=== PATIENT | male | born 1975 | race Caucasian/White ===

== ENCOUNTER 2021-11-30 12:10 | Emergency (ER) | payer OTHER, SELFPAY ==
[2021-11-30 12:16] VITALS: BP 141/54; PULSE 60; RESP 16; TEMP 36.2; O2SAT 98
--- NOTE | 2021-11-30 12:41 | ED.GENADULT ---
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 Patient was cleaning up drug paraphernalia at a house when he felt like he was pricked by a small needle. He is working with a bag that was filled with insulin needles and other hypodermic needles. The network control technician of the needles is a known IV drug user with hepatitis C. The patient would like HIV prophylaxis. no other complaints at this time. Related Data Allergies Allergy/AdvReac Type Severity Reaction Status Date / Time No Known Allergies Allergy Verified 11/30/21 12:19 Review of Systems Review of Systems: CONSTITUTIONAL: Denies night sweats. EYES: No eye pain ENT: Denies rhinorrhea CARDIOVASCULAR: Denies palpitations RESPIRATORY: Denies hemoptysis GASTROINTESTINAL: Denies hematemesis GENITOURINARY: Denies hematuria. SKIN: Denies rash MUSCULOSKELETAL: Denies myalgia. NEUROLOGIC: Denies weakness. PSYCHIATRIC: Denies delusions Exam Narrative: APPEARANCE: No apparent distress. Head atraumatic. EYES: PERRLA/EOMI, NOSE: Normal no drainage NECK: Supple, Trachea midline RESPIRATORY: CTAB, No increased work of breathing. CARDIOVASCULAR: S1S2 appreciated ABDOMINAL: Soft, nontender, nondistended, MUSCULOSKELETAl: No obvious deformities NEURO: Alert. Moving 4/4 extremities SKIN:: Warm, dry. Normal color PSYCHIATRIC: Normal affect Course Vital Signs Vital signs: Vital Signs Temperature 97.1 F L 11/30/21 12:16 Pulse Rate 60 11/30/21 12:16 Respiratory Rate 16 11/30/21 12:16 Blood Pressure 141/54 H 11/30/21 12:16 Pulse Oximetry 98 11/30/21 12:16 Temperature 97.1 F L 11/30/21 12:16 Pulse Rate 60 11/30/21 12:16 Respiratory Rate 16 11/30/21 12:16 Blood Pressure 141/54 H 11/30/21 12:16 Pulse Oximetry 98 11/30/21 12:16 Medical Decision Making [facility] Narrative Medical decision making narrative: This is a 45-year-old male presenting after a needlestick. He is high risk as it was a hypodermic needle and the Cozaar had hepatitis C. HIV status is unknown. HIV post exposure prophylaxis will be initiated. Appropriate lab work has been ordered. Baseline lab work was within normal limits. Patient will be discharged w/ HIV prophylaxis. He has been given the schedule of when he will need repeat testing for HIV and hepatitis C. He has been instructed to follow-up with his primary care physician Vital Signs Vital Signs: Vital Signs Temperature 97.1 F L 11/30/21 12:16 Pulse Rate 60 11/30/21 12:16 Respiratory Rate 16 11/30/21 12:16 Blood Pressure 141/54 H 11/30/21 12:16 Pulse Oximetry 98 11/30/21 12:16 Temperature 97.1 F L 11/30/21 12:16 Pulse Rate 60 11/30/21 12:16 Respiratory Rate 16 11/30/21 12:16 Blood Pressure 141/54 H 11/30/21 12:16 Pulse Oximetry 98 11/30/21 12:16 Lab Data Result diagrams: 11/30/21 13:16 11/30/21 13:16 Labs: Lab Results 11/30/21 11/30/21 11/30/21 Range/Units 13:16 13:16 13:16 WBC 8.1 (4.5-10.0) K/mm3 RBC 5.48 (4.6-6.20) M/mm3 Hgb 16.0 (14.0-18.0) g/dL Hct 45.8 (42.0-52.0) % MCV 83.6 (80-100) fl MCH 29.2 (26-34) pg MCHC 34.9 (32-36) g/dl RDW 12.3 (11.5-14.5) % Plt Count 224 (150-375) k/mm3 MPV 8.7 (7.4-10.4) fl Immature Gran % (Auto) 0.4 (0-0.5) % Neut % (Auto) 66.7 (45.5-73.1) % Lymph % (Auto) 23.6 (18.3-44.2) % [place] % (Auto) 7.3 (2.6-8.5) % Eos % (Auto) 1.5 (0-4.4) % Baso % (Auto) 0.5 (0.2-1.2) % Lymph # (Auto) 1.91 (0.9-3.2) K/mm3 [place] # (Auto) 0.6 (0.1-0.6) K/mm3 Eos # (Auto) 0.1 (0-0.3) K/mm3 Baso # (Auto) 0.0 (0.0-0.1) K/mm3 Abs Immat Gran (auto) 0.03 (0.00-0.031) K/mm3 Absolute Neuts
--- NOTE | 2021-11-30 12:51 | ECG_ITS ---
Measurements Intervals [place] Rate: 56 P: 63 PA: 153 QRS: 51 QRSD: 91 T: 52 QT: 383 QTc: 371 Interpretive Statements SINUS BRADYCARDIA POSSIBLE RIGHT VENTRICULAR CONDUCTION DELAY [RSR (QR) IN V1/V2] BORDERLINE ECG NO PREVIOUS ECG AVAILABLE FOR COMPARISON Electronically Signed On 11-30-2021 16:25:27 CDT by Dioni Loomis M.D.
[2021-11-30] MEDS: TETANUS,DIPHTHERIA,AC PERTUSSIS ADULT (0.5 ML) BOOSTRIX IM (13:02)
[2021-11-30 13:32] LABS: Basophils Percent Auto 0.5 % (0.2-1.2); Eosinophils Absolute Auto 0.1 K/mm3 (0-0.3); Eosinophils Percent Auto 1.5 % (0-4.4); Hematocrit 45.8 % (42.0-52.0); Immature Granulocyte Absolute 0.03 K/mm3 (0.00-0.031); Immature Granulocyte Percent A 0.4 % (0-0.5); Lymphocytes Absolute Auto 1.91 K/mm3 (0.9-3.2); Lymphocytes Percent Auto 23.6 % (18.3-44.2); Mean Corpuscular HGB Conc 34.9 g/dl (32-36); Mean Corpuscular Hemoglobin 29.2 pg (26-34); Mean Corpuscular Volume 83.6 fl (80-100); Mean Platelet Volume 8.7 fl (7.4-10.4); Monocytes Absolute Auto 0.6 K/mm3 (0.1-0.6); Monocytes Percent Auto 7.3 % (2.6-8.5); Neutrophils Absolute Auto 5.4 K/mm3 (1.3-6.7); Neutrophils Percent Auto 66.7 % (45.5-73.1); Platelet Count Result 224 k/mm3 (150-375); Red Blood Count 5.48 M/mm3 (4.6-6.20); Red Cell Distribution Width 12.3 % (11.5-14.5); White Blood Count 8.1 K/mm3 (4.5-10.0)
[2021-11-30 13:36] LABS: Add Urine Microscopic? NO; Appearance Urine Clear (Clear); Bilirubin Urine Negative (Negative); Blood Urine Negative (Negative); Color Urine Yellow (Yellow); Glucose Urine UA Negative (Negative); Ketones Urine Negative (Negative); Leukocyte Esterase Ur Negative LEU/UL (Negative); Nitrate Urine Negative (Negative); Protein Urine Negative (Negative); Specific Grav Ur 1.018 (1.001-1.035); Urobilinogen Urine Negative mg/dL (<2.0)
[2021-11-30 13:46] LABS: Alanine Aminotransferase 50 U/L (6-50); Albumin Level 4.9 g/dL (3.5-5.1); Alkaline Phosphatase 56 U/L (38-126); Anion Gap 16 mmol/L (8-16); Aspartate Amino Transferase 37 U/L (17-59); Bilirubin,Total 0.4 mg/dL (0.2-1.3); Blood Urea Nitrogen 23 mg/dL (9-20); Calcium 9.2 mg/dL (8.4-10.2); Carbon Dioxide 28 mmol/L (22-30); Chloride 97 mmol/L (98-107); Estimated CRCL calculation 85 ml/min; Estimated Glomerular Filt Rate > 60; Glucose 100 mg/dL (65-110); Potassium 3.7 mmol/L (3.4-5.0); Sodium 141 mmol/L (137-145)
[2021-11-30 14:28] LABS: HIV 1/2 Ab P24 Ag Result Negative (Negative)
[2021-11-30 16:32] LABS: Hepatitis B Surface Antigen Negative (Negative)
[2021-11-30 16:38] LABS: HAV RESULT Negative (Negative); Hepatitis B Core IgM Result Negative (Negative)
[2021-11-30 16:49] LABS: Hepatitis C Virus Antibody Negative (Negative)
== END 2021-11-30 14:45 | disposition home or self-care (01) ==
PROVIDERS: Emergency Provider Emergency Medicine
DX: T14.8XXA Other injury of unspecified body region, initial encounter (principal); W46.1XXA Contact with contaminated hypodermic needle, initial encounter; Z23 Encounter for immunization
CPT/HCPCS: 36415; 80053; 80074; 81003; 85025; 86703; 90471; 90715; 93005; 99283; G0432

== ENCOUNTER 2024-08-30 00:15 | Day surgery (SDC) | payer OTHER, SELFPAY ==
[2024-08-15 15:25] VITALS: BMI 29.2
--- OUTSIDE RECORDS SUMMARY | 2024-08-30 00:24 | XMS_ITS | Patient Health Record ---
Author Organization [facility] [employer] Address [address] [facility] [address] [place] [address] Care Team Providers Care Cotton Agent Name Role Phone Juan Pablo ALVARADO, [facility] Primary Care Provider Alysa Wilson Unavailable [phone] Allergies No Known Allergies Reason For Referral No Information Medications Medication SIG (Take, Route, Frequency, Duration) Notes Start Date End Date Status Ergocalciferol 1.25 MG (30669 UT) Oral 06/28/2023 Not-Taking Vraylar 1.5 MG Take 1 capsule by mouth once daily; Duration: 90 Active Vraylar 1.5 MG 1 capsule Orally Once a day; Duration: 90 days Active Venlafaxine HCl ER 75 MG 1 capsule in the morning Oral Once a day; Duration: 90 days d/c 150 mg dose Active lamoTRIgine 25 MG 1 tablet once a day for 15 days, 2 tablets once a day for 15 days Orally once a day; Duration: 30 days 08/07/2024 Active Immunizations Vaccine Route Administration Date Status Comme nts Tdap Unknown 11/30/2021 Administered Social History Tobacco Use: Social History Observation Description Date Details (start date - stop date) Never Smoker NA - NA Sex Assigned At : Social History Observation Description Sex Assigned At Male Tobacco Control (Standard) Question Answer Notes Tobacco use: Nonsmoker AUDIT-C (Standard) Question Answer Notes Did you have a drink contain ing alcohol in the past year? Yes How many drinks did you have on a typical day when you were drinking in the past year? 1 or 2 drinks (0 point) How often did you have a dri nk containing alcohol in the past year? Monthly or less (1 point) Problems Problem Type SNOMED Code ICD Code Onset Dates Problem Status W/U Status Risk Notes Problem Mild recurrent major depression (22441262) Major depressive disorder, recurrent, mild (F33.0) 06/28/19 24 Active confirmed Problem Generalized anxiety disorder (01118520) Generalized anxiety disorder (F41.1) 06/28/19 Active confirmed Problem Sleep apnea (49510845) Sleep apnea, unspecified (G47.30) 06/28/19 24 Active confirmed Problem Screening for cardiovascular system disease (066180374) Encounter for screening for cardiovascular disorders (Z13.6) Active confirmed Vital Signs Heart Rate 66 /min 05/08/2024 Height-cm 167.64 cm 05/08/2024 Blood pressure diastolic 71 mm Hg 05/08/2024 Weight-kg 83.92 kg 05/08/2024 Height 66.00 in 05/08/2024 Blood pressure systolic 129 mm Hg 05/08/2024 Weight 185.0 lbs 05/08/2024 BMI 29.86 kg/m2 05/08/2024 Encounters Encounter Location Date Provider Diagnosis [facility] [employer] [address] [address] 11/29/2023 Alysa Theranni Major depressive disorder, recurrent, mild F33.0 ; Generalized anxiety disorder F41.1 and Sleep apnea, unspecified G47.30 [facility] [employer] [address] [address] 02/09/2024 Alysa Thery Major depressive disorder, recurrent, mild F33.0 ; Generalized anxiety disorder F41.1 and Sleep apnea, unspecified G47.30 [facility] [employer] [address] [address] 03/22/2024 Alysa Thery Major depressive disorder, recurrent, mild F33.0 ; Generalized anxiety disorder F41.1 and Sleep apnea, unspecified G47.30 [facility] [employer] [address] [address] 05/08/2024 Alysa Thery Major depressive disorder, recurrent, mild F33.0 ; Generalized anxiety disorder F41.1 ; Sleep apnea, unspecified G47.30 and Encounter for screening for cardiovascular disorders Z13.6 [facility] [employer] [address] [address] 08/07/2024 Alysa Thery Major depressive disorder, recurrent, mild F33.0 ; Generalized anxiety disorder F41.1 ; Sleep apnea, unspecified G47.30 ; Encounter for screening for cardiovascular disorders Z13.6 and Encounter for screening for depression Z13.31 [facility], [facility] [address] [place] [address] 09/06/2023 Alysa Rose [facility], [facility] [address] [place] [address] 02/21/2024 Alysa Rose [facility], [facility] [address] [place] [address] 08/31/2023 Alysa Rose [facility], [facility] [address] [place] [address] 09/06/2023 Alysa Rose Generalized anxiety disorder F41.1 [facility], [facility] [address] [place] [address] 09/06/2023 Alysa Rose [facility], [facility] [address] [place] [address] 09/09/2023 Alysa Rose [facility], [facility] [address] [place] [address] 09/12/2023 Alysa Rose [facility], [facility] [address] [place] [address] 01/20/2024 Alysa Rose [facility], [facility] [address] [place] [address] 02/09/2024 Alysa Rose [facility], [facility] [address] [place] [address] 03/20/2024 Alysa Rose [facility], [facility] [address] [place] [address] 03/21/2024 Alysa Rose [facility], [facility] [address] [place] [address] 03/21/2024 Alysa Theranni [facility], [facility] [address] [place] [address] 05/21/2024 Alysa Theranni [facility], [facility] [address] [place] [address] 05/28/2024 Alysa Rose [facility] [address] [address] 05/28/2024 Alysa Rose Assessments Encounter Date Diagnosis (ICD Code) Assessment Notes Treatment Notes Treatment Clinical Notes Section Notes 09/06/2023 Generalized anxiety disorder (ICD-10 - F41.1) 11/29/2023 Major depressive disorder, recurrent, mild (ICD-10 - F33.0) Preventing Depression From Coming Back: Care Instructions material was published, Learning About Depression Screening material was published, Learning About Depression material was published, Seasonal Affective Disorder: Care Instructions material was published, Depression Treatment: Care Instructions material was published 1. Mild recurrent major depression -educated and discuss Increase Effexor ER 150 mg daily in am - for depresison and anxiety- donny reported he also gets seasonal affective disorder MONITOR B/P educated patient not able to do disability forms for up to 1 year related patient is new to practice educated on all medications, benefits, side effects and risk, and educated on depression, anxiety, and ADHD, mood d/o and educated on compliance of medications, metabolic and movement d/o education appointment is, continue therapy discussion with patient about course of treatment and patient instructions. education on serotonin syndrome SSRI/SNRI side effects discussed including but not limited to, gastric upset, nausea, vomiting, diarrhea and/or constipation, weight changes, sexual side effects including loss of libido, increased suicidal thoughts/behaviors in children and young adults, and serotonin syndrome. 2. Generalized anxiety disorder - Increase Effexor ER 150 mg daily in am - MONITOR B/P educated on rx will titate as needed discuss light box therapy and proper use for depression and seasonal affective d/o Reported tinnitus cause more anxiety with ringing and I am focus on it and not on tasks and conversation ect- educated to see ENT for tinnitus Discuss therapy CAMRYN and patient does not feel a need at this time Medication Management and Follow-Up - Plan: - Schedule follow-up appointments every 1-3 months and PRN to monitor the patient's response to the medication regimen. - Reinforce the importance of avoiding recreational drug use due to potential neurotoxicity and interactions with prescribed medications. 3. Sleep apnea -on CPAP 02/09/2024 Major depressive disorder, recurrent, mild (ICD-10 - F33.0) Preventing Depression From Coming Back: Care Instructions material was published, Learning About Depression Screening material was published, Learning About Depression material was published, Seasonal Affective Disorder: Care Instructions material was published, Depression Treatment: Care Instructions material was published 1. Mild recurrent major depression -educated and discuss Effexor ER 150 mg daily in am - for depresison and anxiety- saryn reported he also gets seasonal affective disorder MONITOR B/P educated patient not able to do disability forms for up to 1 year related patient is new to practice educated on all medications, benefits, side effects and risk, and educated on depression, anxiety, and ADHD, mood d/o and educated on compliance of medications, metabolic and movement d/o education appointment is, continue therapy discussion with patient about course of treatment and patient instructions. education on serotonin syndrome SSRI/SNRI side effects discussed including but not limited to, gastric upset, nausea, vomiting, diarrhea and/or constipation, weight changes, sexual side effects including loss of libido, increased suicidal thoughts/behaviors in children and young adults, and serotonin syndrome. [place] letter stating marleen has medical dxn of tinnitus from [place] and had test completed per patient. Patient reported tinnitus triggers anxiety and stress in situations, conversations, and effect social interaction, and at work with others 2. Generalized anxiety disorder - Effexor ER 150 mg daily in am - MONITOR B/P educated on rx will titate as needed discuss light box therapy and proper use for depression and seasonal affective d/o Reported tinnitus cause more anxiety with ringing and I am focus on it and not on tasks and conversation ect- educated to see ENT for tinnitus Discuss therapy CAMRYN and patient does not feel a need at this time Medication Management and Follow-Up - Plan: - Schedule follow-up appointments every 1-3 months and PRN to monitor the patient's response to the medication regimen. - Reinforce the importance of avoiding recreational drug use due to potential neurotoxicity and interactions with prescribed medications. 3. Sleep apnea -on CPAP 03/22/2024 Major depressive disorder, recurrent, mild (ICD-10 - F33.0) Preventing Depression From Coming Back: Care Instructions material was published, Learning About Depression Screening material was published, Learning About Depression material was published, Seasonal Affective Disorder: Care Instructions material was published, Depression Treatment: Care Instructions material was published 1. Mild recurrent major depression -educated and discuss decrease Effexor ER 75 mg daily in am - r/o sexual side effects patient reported had labs done last month and [facility] - PCP depresison and anxiety- patient reported he also gets seasonal affective disorder- discus light box therapy and proper use MONITOR B/P educated patient not able to do disability forms for up to 1 year related patient is new to practice educated on all medications, benefits, side effects and risk, and educated on depression, anxiety, and ADHD, mood d/o and educated on compliance of medications, metabolic and movement d/o education appointment is, continue therapy discussion with patient about course of treatment and patient instructions. education on serotonin syndrome SSRI/SNRI side effects discussed including but not limited to, gastric upset, nausea, vomiting, diarrhea and/or constipation, weight changes, sexual side effects including loss of libido, increased suicidal thoughts/behaviors in children and young adults, and serotonin syndrome. [place] letter stating marleen has medical dxn of tinnitus from [place] and had test completed per patient. Patient reported tinnitus triggers anxiety and stress in situations, conversations, and effect social interaction, and at work with others 2. Generalized anxiety disorder - decrease Effexor ER 75 mg daily in am - r/o sexual side effects MONITOR B/P educated on rx will titate as needed discuss light box therapy and proper use for depression and seasonal affective d/o Reported tinnitus cause more anxiety with ringing and I am focus on it and not on tasks and conversation ect- educated to see ENT for tinnitus- plan to have hearing test Discuss therapy CAMRYN and patient does not feel a need at this time Medication Management and Follow-Up - Plan: - Schedule follow-up appointments every 1-3 months and PRN to monitor the patient's response to the medication regimen. - Reinforce the importance of avoiding recreational drug use due to potential neurotoxicity and interactions with prescribed medications. 3. Sleep apnea -on CPAP 05/08/2024 Major depressive disorder, recurrent, mild (ICD-10 - F33.0) Preventing Depression From Coming Back: Care Instructions material was published, Learning About Depression Screening material was published, Learning About Depression material was published, Seasonal Affective Disorder: Care Instructions material was published, Depression Treatment: Care Instructions material was published, Preventing Depression From Coming Back: Care Instructions material was published, Depression Treatment: Care Instructions material was published, Seasonal Affective Disorder: Care Instructions material was published, Learning About Depression material was published 1. major depression -educated and discuss all rx Effexor ER 75 mg daily in am - improved sexual side effects with GDR pcp added Vraylar 1.5 mg last week half and helped CAMRYN will prescribed Vraylar 1.5 mg daily patient reported had labs done last month and [facility] - PCP depresison and anxiety- patient reported he also gets seasonal affective disorder- discus light box therapy and proper use MONITOR B/P educated patient not able to do disability forms for up to 1 year related patient is new to practice educated on all medications, benefits, side effects and risk, and educated on depression, anxiety, and ADHD, mood d/o and educated on compliance of medications, metabolic and movement d/o education appointment is, continue therapy discussion with patient about course of treatment and patient instructions. education on serotonin syndrome SSRI/SNRI side effects discussed including but not limited to, gastric upset, nausea, vomiting, diarrhea and/or constipation, weight changes, sexual side effects including loss of libido, increased suicidal thoughts/behaviors in children and young adults, and serotonin syndrome. Second generation antipsychotics (SGAs) have metabolic syndrome issues with weight gain, increase in prolactin, increased waist circumference, increased lipids, and increased glucose. Thus routine monitoring of weight, metabolic labs, etc. is indicated. A general rank ordering of antipsychotics that have the greatest to the least risk of metabolic effects is olanzapine, quetiapine, risperidone, ziprasidone, and aripiprazole. However, weight gain can occur with all of these drugs and considerable variability exists among patients receiving the same drug regarding the risk of metabolic effects. Anti-psychotic agents not only increase the risk of metabolic disorder, they also increase the risk of CVA, akathisia, and movement disorders including EPS or tardive dyskinesia (more common with first generation antipsychotics) and more. [place] letter stating pateint has medical dxn of tinnitus from [place] and had test completed per patient. Patient reported tinnitus triggers anxiety and stress in situations, conversations, and effect social interaction, and at work with others 2. Generalized anxiety disorder - Effexor ER 75 mg daily in am - MONITOR B/P educated on rx will titate as needed discuss light box therapy and proper use for depression and seasonal affective d/o Reported tinnitus cause more anxiety with ringing and I am focus on it and not on tasks and conversation ect- educated to see ENT for tinnitus- plan to have hearing test Discuss therapy CAMRYN and patient does not feel a need at this time Medication Management and Follow-Up - Plan: - Schedule follow-up appointments every 1-3 months and PRN to monitor the patient's response to the medication regimen. - Reinforce the importance of avoiding recreational drug use due to potential neurotoxicity and interactions with prescribed medications. 3. Sleep apnea -on CPAP 08/07/2024 Major depressive disorder, recurrent, mild (ICD-10 - F33.0) Preventing Depression From Coming Back: Care Instructions material was published, Learning About Depression Screening material was published, Learning About Depression material was published, Seasonal Affective Disorder: Care Instructions material was published, Depression Treatment: Care Instructions material was published, Preventing Depression From Coming Back: Care Instructions material was published, Depression Treatment: Care Instructions material was published, Seasonal Affective Disorder: Care Instructions material was published, Learning About Depression material was published 1. major depression - having depression over last month with lack motivation and interest educated and discuss all rx Effexor ER 75 mg daily in am - improved sexual side effects with GDR Vraylar 1.5 mg daily Add Lamotrigine 25 mg daily for 2 weeks then increase to 50 mg daily educted on rx Lamotrigine lamotrigine has a serious rashes requiring hospitalization and discontinue treatment including Faustino Marck syndrome rare case of toxic epidermal necrolysis and cache related deaths. Incidence with adjunct of epilepsy treatment 0.8% in 2 to 16 years old and 0.3% in adults, bipolar and other mood disorders incidence 0.8% this initial monotherapy and 0.13% as adjunctive treatment. Other risk factor may include concomitant use of valproate acid derivative or exceeding initial lamotrigine does or does as clinician recommendation; most life-threatening rash of occurring first 2 to 8 week of treatment with isolated cases after prolonged treatment; though benign may occur, discontinue treatment at first sign of rash unless clearly not a drug related; TC treatment may not prevent trash from becoming life-threatening or permanently disabling or disfiguring. Comment reaction include, nausea/vomiting, dizziness/vertigo, visual disturbances, somnolence, ataxia, pruritus/rash, pharyngitis, headache, rhinitis, diarrhea, fever, asthenia, insomnia, tremor, abdominal pain, cough, accidental injury, constipation, dysmenorrhea, incoordination, anxiety, seizures, irritability, anorexia, xerostomia, and photosensitivity. Serious reactions include: Rash, severe; Newton Marck syndrome; toxic epidermal necrosis; injury edema, hypersensitivity reactions. Including fatal, multiple organ failure to safe fatal, rash with eosinophilia systemic symptoms, DIC, neutropenia, leukopenia, thrombocytopenia, pancytopenia, aplastic anemia, hemolytic anemia, i pancreatitis, hepatic failure, rhabdomyolysis, worsening of suicidal ideation, worsening of depression, cleft lip/palate [first trimester use] DO not Change Cosmetic, perfumes or soap for next 4 weeks. The patient was advice to take lamotrigine as prescribed the patient was instructed not to deviate from the prescription dosages. Stop lamotrigine is the first sign of rash. Patient was insisted to inform office if any of the serious side effect develops. patient reported had labs done last month and [facility] - PCP depresison and anxiety- patient reported he also gets seasonal affective disorder- discus light box therapy and proper use MONITOR B/P educated patient not able to do disability forms for up to 1 year related patient is new to practice educated on all medications, benefits, side effects and risk, and educated on depression, anxiety, and ADHD, mood d/o and educated on compliance of medications, metabolic and movement d/o education appointment is, continue therapy discussion with patient about course of treatment and patient instructions. education on serotonin syndrome SSRI/SNRI side effects discussed including but not limited to, gastric upset, nausea, vomiting, diarrhea and/or constipation, weight changes, sexual side effects including loss of libido, increased suicidal thoughts/behaviors in children and young adults, and serotonin syndrome. Second generation antipsychotics (SGAs) have metabolic syndrome issues with weight gain, increase in prolactin, increased waist circumference, increased lipids, and increased glucose. Thus routine monitoring of weight, metabolic labs, etc. is indicated. A general rank ordering of antipsychotics that have the greatest to the least risk of metabolic effects is olanzapine, quetiapine, risperidone, ziprasidone, and aripiprazole. However, weight gain can occur with all of these drugs and considerable variability exists among patients receiving the same drug regarding the risk of metabolic effects. Anti-psychotic agents not only increase the risk of metabolic disorder, they also increase the risk of CVA, akathisia, and movement disorders including EPS or tardive dyskinesia (more common with first generation antipsychotics) and more. [place] letter stating pateint has medical dxn of tinnitus from [place] and had test completed per patient. Patient reported tinnitus triggers anxiety and stress in situations, conversations, and effect social interaction, and at work with others 2. Generalized anxiety disorder - Effexor ER 75 mg daily in am - MONITOR B/P educated on rx will titate as needed discuss light box therapy and proper use for depression and seasonal affective d/o Reported tinnitus cause more anxiety with ringing and I am focus on it and not on tasks and conversation ect- educated to see ENT for tinnitus- plan to have hearing test Discuss therapy CAMRYN and patient does not feel a need at this time Medication Management and Follow-Up - Plan: - Schedule follow-up appointments every 1-3 months and PRN to monitor the patient's response to the medication regimen. - Reinforce the importance of avoiding recreational drug use due to potential neurotoxicity and interactions with prescribed medications. 3. Sleep apnea -on CPAP 08/07/2024 Generalized anxiety disorder (ICD-10 - F41.1) Learning About Generalized Anxiety Disorder material was published, Generalized Anxiety Disorder: Care Instructions material was published, Learning About Anxiety Disorders material was published 1. major depression - having depression over last month with lack motivation and interest educated and discuss all rx Effexor ER 75 mg daily in am - improved sexual side effects with GDR Vraylar 1.5 mg daily Add Lamotrigine 25 mg daily for 2 weeks then increase to 50 mg daily educted on rx Lamotrigine lamotrigine has a serious rashes requiring hospitalization and discontinue treatment including Faustino Marck syndrome rare case of toxic epidermal necrolysis and cache related deaths. Incidence with adjunct of epilepsy treatment 0.8% in 2 to 16 years old and 0.3% in adults, bipolar and other mood disorders incidence 0.8% this initial monotherapy and 0.13% as adjunctive treatment. Other risk factor may include concomitant use of valproate acid derivative or exceeding initial lamotrigine does or does as clinician recommendation; most life-threatening rash of occurring first 2 to 8 week of treatment with isolated cases after prolonged treatment; though benign may occur, discontinue treatment at first sign of rash unless clearly not a drug related; TC treatment may not prevent trash from becoming life-threatening or permanently disabling or disfiguring. Comment reaction include, nausea/vomiting, dizziness/vertigo, visual disturbances, somnolence, ataxia, pruritus/rash, pharyngitis, headache, rhinitis, diarrhea, fever, asthenia, insomnia, tremor, abdominal pain, cough, accidental injury, constipation, dysmenorrhea, incoordination, anxiety, seizures, irritability, anorexia, xerostomia, and photosensitivity. Serious reactions include: Rash, severe; Newton Marck syndrome; toxic epidermal necrosis; injury edema, hypersensitivity reactions. Including fatal, multiple organ failure to safe fatal, rash with eosinophilia systemic symptoms, DIC, neutropenia, leukopenia, thrombocytopenia, pancytopenia, aplastic anemia, hemolytic anemia, i pancreatitis, hepatic failure, rhabdomyolysis, worsening of suicidal ideation, worsening of depression, cleft lip/palate [first trimester use] DO not Change Cosmetic, perfumes or soap for next 4 weeks. The patient was advice to take lamotrigine as prescribed the patient was instructed not to deviate from the prescription dosages. Stop lamotrigine is the first sign of rash. Patient was insisted to inform office if any of the serious side effect develops. patient reported had labs done last month and [facility] - PCP depresison and anxiety- patient reported he also gets seasonal affective disorder- discus light box therapy and proper use MONITOR B/P educated patient not able to do disability forms for up to 1 year related patient is new to practice educated on all medications, benefits, side effects and risk, and educated on depression, anxiety, and ADHD, mood d/o and educated on compliance of medications, metabolic and movement d/o education appointment is, continue therapy discussion with patient about course of treatment and patient instructions. education on serotonin syndrome SSRI/SNRI side effects discussed including but not limited to, gastric upset, nausea, vomiting, diarrhea and/or constipation, weight changes, sexual side effects including loss of libido, increased suicidal thoughts/behaviors in children and young adults, and serotonin syndrome. Second generation antipsychotics (SGAs) have metabolic syndrome issues with weight gain, increase in prolactin, increased waist circumference, increased lipids, and increased glucose. Thus routine monitoring of weight, metabolic labs, etc. is indicated. A general rank ordering of antipsychotics that have the greatest to the least risk of metabolic effects is olanzapine, quetiapine, risperidone, ziprasidone, and aripiprazole. However, weight gain can occur with all of these drugs and considerable variability exists among patients receiving the same drug regarding the risk of metabolic effects. Anti-psychotic agents not only increase the risk of metabolic disorder, they also increase the risk of CVA, akathisia, and movement disorders including EPS or tardive dyskinesia (more common with first generation antipsychotics) and more. [place] and had test completed per patient. Patient reported tinnitus triggers anxiety and stress in situations, conversations, and effect social interaction, and at work with others 2. Generalized anxiety disorder - Effexor ER 75 mg daily in am - MONITOR B/P educated on rx will titate as needed discuss light box therapy and proper use for depression and seasonal affective d/o Reported tinnitus cause more anxiety with ringing and I am focus on it and not on tasks and conversation ect- educated to see ENT for tinnitus- plan to have hearing test Discuss therapy CAMRYN and patient does not feel a need at this time Medication Management and Follow-Up - Plan: - Schedule follow-up appointments every 1-3 months and PRN to monitor the patient's response to the medication regimen. - Reinforce the importance of avoiding recreational drug use due to potential neurotoxicity and interactions with prescribed medications. 3. Sleep apnea -on CPAP 05/08/2024 Generalized anxiety disorder (ICD-10 - F41.1) Learning About Generalized Anxiety Disorder material was published, Generalized Anxiety Disorder: Care Instructions material was published, Learning About Anxiety Disorders material was published 1. major depression -educated and discuss all rx Effexor ER 75 mg daily in am - improved sexual side effects with GDR pcp added Vraylar 1.5 mg last week half and helped CAMRYN will prescribed Vraylar 1.5 mg daily patient reported had labs done last month and [facility] - PCP depresison and anxiety- patient reported he also gets seasonal affective disorder- discus light box therapy and proper use MONITOR B/P educated patient not able to do disability forms for up to 1 year related patient is new to practice educated on all medications, benefits, side effects and risk, and educated on depression, anxiety, and ADHD, mood d/o and educated on compliance of medications, metabolic and movement d/o education appointment is, continue therapy discussion with patient about course of treatment and patient instructions. education on serotonin syndrome SSRI/SNRI side effects discussed including but not limited to, gastric upset, nausea, vomiting, diarrhea and/or constipation, weight changes, sexual side effects including loss of libido, increased suicidal thoughts/behaviors in children and young adults, and serotonin syndrome. Second generation antipsychotics (SGAs) have metabolic syndrome issues with weight gain, increase in prolactin, increased waist circumference, increased lipids, and increased glucose. Thus routine monitoring of weight, metabolic labs, etc. is indicated. A general rank ordering of antipsychotics that have the greatest to the least risk of metabolic effects is olanzapine, quetiapine, risperidone, ziprasidone, and aripiprazole. However, weight gain can occur with all of these drugs and considerable variability exists among patients receiving the same drug regarding the risk of metabolic effects. Anti-psychotic agents not only increase the risk of metabolic disorder, they also increase the risk of CVA, akathisia, and movement disorders including EPS or tardive dyskinesia (more common with first generation antipsychotics) and more. [place] marleen [place] medical [place] from [place] and had test completed per patient. Patient reported tinnitus triggers anxiety and stress in situations, conversations, and effect social interaction, and at work with others 2. Generalized anxiety disorder - Effexor ER 75 mg daily in am - MONITOR B/P educated on rx will titate as needed discuss light box therapy and proper use for depression and seasonal affective d/o Reported tinnitus cause more anxiety with ringing and I am focus on it and not on tasks and conversation ect- educated to see ENT for tinnitus- plan to have hearing test Discuss therapy CAMRYN and patient does not feel a need at this time Medication Management and Follow-Up - Plan: - Schedule follow-up appointments every 1-3 months and PRN to monitor the patient's response to the medication regimen. - Reinforce the importance of avoiding recreational drug use due to potential neurotoxicity and interactions with prescribed medications. 3. Sleep apnea -on CPAP 03/22/2024 Generalized anxiety disorder (ICD-10 - F41.1) Learning About Generalized Anxiety Disorder material was published, Generalized Anxiety Disorder: Care Instructions material was published, Learning About Anxiety Disorders material was published 1. Mild recurrent major depression -educated and discuss decrease Effexor ER 75 mg daily in am - r/o sexual side effects patient reported had labs done last month and [facility] - PCP depresison and anxiety- patient reported he also gets seasonal affective disorder- discus light box therapy and proper use MONITOR B/P educated patient not able to do disability forms for up to 1 year related patient is new to practice educated on all medications, benefits, side effects and risk, and educated on depression, anxiety, and ADHD, mood d/o and educated on compliance of medications, metabolic and movement d/o education appointment is, continue therapy discussion with patient about course of treatment and patient instructions. education on serotonin syndrome SSRI/SNRI side effects discussed including but not limited to, gastric upset, nausea, vomiting, diarrhea and/or constipation, weight changes, sexual side effects including loss of libido, increased suicidal thoughts/behaviors in children and young adults, and serotonin syndrome. [place]ateint [place] and had test completed per patient. Patient reported tinnitus triggers anxiety and stress in situations, conversations, and effect social interaction, and at work with others 2. Generalized anxiety disorder - decrease Effexor ER 75 mg daily in am - r/o sexual side effects MONITOR B/P educated on rx will titate as needed discuss light box therapy and proper use for depression and seasonal affective d/o Reported tinnitus cause more anxiety with ringing and I am focus on it and not on tasks and conversation ect- educated to see ENT for tinnitus- plan to have hearing test Discuss therapy CAMRYN and patient does not feel a need at this time Medication Management and Follow-Up - Plan: - Schedule follow-up appointments every 1-3 months and PRN to monitor the patient's response to the medication regimen. - Reinforce the importance of avoiding recreational drug use due to potential neurotoxicity and interactions with prescribed medications. 3. Sleep apnea -on CPAP 02/09/2024 Generalized anxiety disorder (ICD-10 - F41.1) Learning About Generalized Anxiety Disorder material was published, Generalized Anxiety Disorder: Care Instructions material was published, Learning About Anxiety Disorders material was published 1. Mild recurrent major depression -educated and discuss Effexor ER 150 mg daily in am - for depresison and anxiety- patietn reported he also gets seasonal affective disorder MONITOR B/P educated patient not able to do disability forms for up to 1 year related patient is new to practice educated on all medications, benefits, side effects and risk, and educated on depression, anxiety, and ADHD, mood d/o and educated on compliance of medications, metabolic and movement d/o education appointment is, continue therapy discussion with patient about course of treatment and patient instructions. education on serotonin syndrome SSRI/SNRI side effects discussed including but not limited to, gastric upset, nausea, vomiting, diarrhea and/or constipation, weight changes, sexual side effects including loss of libido, increased suicidal thoughts/behaviors in children and young adults, and serotonin syndrome. [place]ateint [place] and had test completed per patient. Patient reported tinnitus triggers anxiety and stress in situations, conversations, and effect social interaction, and at work with others 2. Generalized anxiety disorder - Effexor ER 150 mg daily in am - MONITOR B/P educated on rx will titate as needed discuss light box therapy and proper use for depression and seasonal affective d/o Reported tinnitus cause more anxiety with ringing and I am focus on it and not on tasks and conversation ect- educated to see ENT for tinnitus Discuss therapy [facility] and patient does not feel a need at this time Medication Management and Follow-Up - Plan: - Schedule follow-up appointments every 1-3 months and PRN to monitor the patient's response to the medication regimen. - Reinforce the importance of avoiding recreational drug use due to potential neurotoxicity and interactions with prescribed medications. 3. Sleep apnea -on CPAP 11/29/2023 Generalized anxiety disorder (ICD-10 - F41.1) Learning About Generalized Anxiety Disorder material was published, Generalized Anxiety Disorder: Care Instructions material was published, Learning About Anxiety Disorders material was published 1. Mild recurrent major depression -educated and discuss Increase Effexor ER 150 mg daily in am - for depresison and anxiety- donny reported he also gets seasonal affective disorder MONITOR B/P educated patient not able to do disability forms for up to 1 year related patient is new to practice educated on all medications, benefits, side effects and risk, and educated on depression, anxiety, and ADHD, mood d/o and educated on compliance of medications, metabolic and movement d/o education appointment is, continue therapy discussion with patient about course of treatment and patient instructions. education on serotonin syndrome SSRI/SNRI side effects discussed including but not limited to, gastric upset, nausea, vomiting, diarrhea and/or constipation, weight changes, sexual side effects including loss of libido, increased suicidal thoughts/behaviors in children and young adults, and serotonin syndrome. 2. Generalized anxiety disorder - Increase Effexor ER 150 mg daily in am - MONITOR B/P educated on rx will titate as needed discuss light box therapy and proper use for depression and seasonal affective d/o Reported tinnitus cause more anxiety with ringing and I am focus on it and not on tasks and conversation ect- educated to see ENT for tinnitus Discuss therapy [facility] and patient does not feel a need at this time Medication Management and Follow-Up - Plan: - Schedule follow-up appointments every 1-3 months and PRN to monitor the patient's response to the medication regimen. - Reinforce the importance of avoiding recreational drug use due to potential neurotoxicity and interactions with prescribed medications. 3. Sleep apnea -on CPAP 11/29/2023 Sleep apnea, unspecified (ICD-10 - G47.30) Learning About Sleep Apnea material was published, Heart Failure and Sleep Apnea: Care Instructions material was published 1. Mild recurrent major depression -educated and discuss Increase Effexor ER 150 mg daily in am - for depresison and anxiety- donny reported he also gets seasonal affective disorder MONITOR B/P educated patient not able to do disability forms for up to 1 year related patient is new to practice educated on all medications, benefits, side effects and risk, and educated on depression, anxiety, and ADHD, mood d/o and educated on compliance of medications, metabolic and movement d/o education appointment is, continue therapy discussion with patient about course of treatment and patient instructions. education on serotonin syndrome SSRI/SNRI side effects discussed including but not limited to, gastric upset, nausea, vomiting, diarrhea and/or constipation, weight changes, sexual side effects including loss of libido, increased suicidal thoughts/behaviors in children and young adults, and serotonin syndrome. 2. Generalized anxiety disorder - Increase Effexor ER 150 mg daily in am - MONITOR B/P educated on rx will titate as needed discuss light box therapy and proper use for depression and seasonal affective d/o Reported tinnitus cause more anxiety with ringing and I am focus on it and not on tasks and conversation ect- educated to see ENT for tinnitus Discuss therapy [facility] and patient does not feel a need at this time Medication Management and Follow-Up - Plan: - Schedule follow-up appointments every 1-3 months and PRN to monitor the patient's response to the medication regimen. - Reinforce the importance of avoiding recreational drug use due to potential neurotoxicity and interactions with prescribed medications. 3. Sleep apnea -on CPAP 02/09/2024 Sleep apnea, unspecified (ICD-10 - G47.30) Learning About Sleep Apnea material was published, Heart Failure and Sleep Apnea: Care Instructions material was published 1. Mild recurrent major depression -educated and discuss Effexor ER 150 mg daily in am - for depresison and anxiety- donny reported he also gets seasonal affective disorder MONITOR B/P educated patient not able to do disability forms for up to 1 year related patient is new to practice educated on all medications, benefits, side effects and risk, and educated on depression, anxiety, and ADHD, mood d/o and educated on compliance of medications, metabolic and movement d/o education appointment is, continue therapy discussion with patient about course of treatment and patient instructions. education on serotonin syndrome SSRI/SNRI side effects discussed including but not limited to, gastric upset, nausea, vomiting, diarrhea and/or constipation, weight changes, sexual side effects including loss of libido, increased suicidal thoughts/behaviors in children and young adults, and serotonin syndrome. [place] dx[place] and had test completed per patient. Patient reported tinnitus triggers anxiety and stress in situations, conversations, and effect social interaction, and at work with others 2. Generalized anxiety disorder - Effexor ER 150 mg daily in am - MONITOR B/P educated on rx will titate as needed discuss light box therapy and proper use for depression and seasonal affective d/o Reported tinnitus cause more anxiety with ringing and I am focus on it and not on tasks and conversation ect- educated to see ENT for tinnitus Discuss therapy [facility]N and patient does not feel a need at this time Medication Management and Follow-Up - Plan: - Schedule follow-up appointments every 1-3 months and PRN to monitor the patient's response to the medication regimen. - Reinforce the importance of avoiding recreational drug use due to potential neurotoxicity and interactions with prescribed medications. 3. Sleep apnea -on CPAP 03/22/2024 Sleep apnea, unspecified (ICD-10 - G47.30) Learning About Sleep Apnea material was published, Heart Failure and Sleep Apnea: Care Instructions material was published 1. Mild recurrent major depression -educated and discuss decrease Effexor ER 75 mg daily in am - r/o sexual side effects patient reported had labs done last month and [facility] - PCP depresison and anxiety- patient reported he also gets seasonal affective disorder- discus light box therapy and proper use MONITOR B/P educated patient not able to do disability forms for up to 1 year related patient is new to practice educated on all medications, benefits, side effects and risk, and educated on depression, anxiety, and ADHD, mood d/o and educated on compliance of medications, metabolic and movement d/o education appointment is, continue therapy discussion with patient about course of treatment and patient instructions. education on serotonin syndrome SSRI/SNRI side effects discussed including but not limited to, gastric upset, nausea, vomiting, diarrhea and/or constipation, weight changes, sexual side effects including loss of libido, increased suicidal thoughts/behaviors in children and young adults, and serotonin syndrome. [place] medical dx[place] from [place] and had test completed per patient. Patient reported tinnitus triggers anxiety and stress in situations, conversations, and effect social interaction, and at work with others 2. Generalized anxiety disorder - decrease Effexor ER 75 mg daily in am - r/o sexual side effects MONITOR B/P educated on rx will titate as needed discuss light box therapy and proper use for depression and seasonal affective d/o Reported tinnitus cause more anxiety with ringing and I am focus on it and not on tasks and conversation ect- educated to see ENT for tinnitus- plan to have hearing test Discuss therapy [facility] and patient does not feel a need at this time Medication Management and Follow-Up - Plan: - Schedule follow-up appointments every 1-3 months and PRN to monitor the patient's response to the medication regimen. - Reinforce the importance of avoiding recreational drug use due to potential neurotoxicity and interactions with prescribed medications. 3. Sleep apnea -on CPAP 05/08/2024 Sleep apnea, unspecified (ICD-10 - G47.30) Learning About Sleep Apnea material was published, Heart Failure and Sleep Apnea: Care Instructions material was published 1. major depression -educated and discuss all rx Effexor ER 75 mg daily in am - improved sexual side effects with GDR pcp added Vraylar 1.5 mg last week half and helped CAMRYN will prescribed Vraylar 1.5 mg daily patient reported had labs done last month and [facility] - PCP depresison and anxiety- patient reported he also gets seasonal affective disorder- discus light box therapy and proper use MONITOR B/P educated patient not able to do disability forms for up to 1 year related patient is new to practice educated on all medications, benefits, side effects and risk, and educated on depression, anxiety, and ADHD, mood d/o and educated on compliance of medications, metabolic and movement d/o education appointment is, continue therapy discussion with patient about course of treatment and patient instructions. education on serotonin syndrome SSRI/SNRI side effects discussed including but not limited to, gastric upset, nausea, vomiting, diarrhea and/or constipation, weight changes, sexual side effects including loss of libido, increased suicidal thoughts/behaviors in children and young adults, and serotonin syndrome. Second generation antipsychotics (SGAs) have metabolic syndrome issues with weight gain, increase in prolactin, increased waist circumference, increased lipids, and increased glucose. Thus routine monitoring of weight, metabolic labs, etc. is indicated. A general rank ordering of antipsychotics that have the greatest to the least risk of metabolic effects is olanzapine, quetiapine, risperidone, ziprasidone, and aripiprazole. However, weight gain can occur with all of these drugs and considerable variability exists among patients receiving the same drug regarding the risk of metabolic effects. Anti-psychotic agents not only increase the risk of metabolic disorder, they also increase the risk of CVA, akathisia, and movement disorders including EPS or tardive dyskinesia (more common with first generation antipsychotics) and more. [place] stating [place] medical dxn [place] from [place] and had test completed per patient. Patient reported tinnitus triggers anxiety and stress in situations, conversations, and effect social interaction, and at work with others 2. Generalized anxiety disorder - Effexor ER 75 mg daily in am - MONITOR B/P educated on rx will titate as needed discuss light box therapy and proper use for depression and seasonal affective d/o Reported tinnitus cause more anxiety with ringing and I am focus on it and not on tasks and conversation ect- educated to see ENT for tinnitus- plan to have hearing test Discuss therapy [facility]N and patient does not feel a need at this time Medication Management and Follow-Up - Plan: - Schedule follow-up appointments every 1-3 months and PRN to monitor the patient's response to the medication regimen. - Reinforce the importance of avoiding recreational drug use due to potential neurotoxicity and interactions with prescribed medications. 3. Sleep apnea -on CPAP 08/07/2024 Sleep apnea, unspecified (ICD-10 - G47.30) Learning About Sleep Apnea material was published, Heart Failure and Sleep Apnea: Care Instructions material was published 1. major depression - having depression over last month with lack motivation and interest educated and discuss all rx Effexor ER 75 mg daily in am - improved sexual side effects with GDR Vraylar 1.5 mg daily Add Lamotrigine 25 mg daily for 2 weeks then increase to 50 mg daily educted on rx Lamotrigine lamotrigine has a serious rashes requiring hospitalization and discontinue treatment including Faustino Marck syndrome rare case of toxic epidermal necrolysis and cache related deaths. Incidence with adjunct of epilepsy treatment 0.8% in 2 to 16 years old and 0.3% in adults, bipolar and other mood disorders incidence 0.8% this initial monotherapy and 0.13% as adjunctive treatment. Other risk factor may include concomitant use of valproate acid derivative or exceeding initial lamotrigine does or does as clinician recommendation; most life-threatening rash of occurring first 2 to 8 week of treatment with isolated cases after prolonged treatment; though benign may occur, discontinue treatment at first sign of rash unless clearly not a drug related; TC treatment may not prevent trash from becoming life-threatening or permanently disabling or disfiguring. Comment reaction include, nausea/vomiting, dizziness/vertigo, visual disturbances, somnolence, ataxia, pruritus/rash, pharyngitis, headache, rhinitis, diarrhea, fever, asthenia, insomnia, tremor, abdominal pain, cough, accidental injury, constipation, dysmenorrhea, incoordination, anxiety, seizures, irritability, anorexia, xerostomia, and photosensitivity. Serious reactions include: Rash, severe; Newton Marck syndrome; toxic epidermal necrosis; injury edema, hypersensitivity reactions. Including fatal, multiple organ failure to safe fatal, rash with eosinophilia systemic symptoms, DIC, neutropenia, leukopenia, thrombocytopenia, pancytopenia, aplastic anemia, hemolytic anemia, i pancreatitis, hepatic failure, rhabdomyolysis, worsening of suicidal ideation, worsening of depression, cleft lip/palate [first trimester use] DO not Change Cosmetic, perfumes or soap for next 4 weeks. The patient was advice to take lamotrigine as prescribed the patient was instructed not to deviate from the prescription dosages. Stop lamotrigine is the first sign of rash. Patient was insisted to inform office if any of the serious side effect develops. patient reported had labs done last month and [facility] - PCP depresison and anxiety- patient reported he also gets seasonal affective disorder- discus light box therapy and proper use MONITOR B/P educated patient not able to do disability forms for up to 1 year related patient is new to practice educated on all medications, benefits, side effects and risk, and educated on depression, anxiety, and ADHD, mood d/o and educated on compliance of medications, metabolic and movement d/o education appointment is, continue therapy discussion with patient about course of treatment and patient instructions. education on serotonin syndrome SSRI/SNRI side effects discussed including but not limited to, gastric upset, nausea, vomiting, diarrhea and/or constipation, weight changes, sexual side effects including loss of libido, increased suicidal thoughts/behaviors in children and young adults, and serotonin syndrome. Second generation antipsychotics (SGAs) have metabolic syndrome issues with weight gain, increase in prolactin, increased waist circumference, increased lipids, and increased glucose. Thus routine monitoring of weight, metabolic labs, etc. is indicated. A general rank ordering of antipsychotics that have the greatest to the least risk of metabolic effects is olanzapine, quetiapine, risperidone, ziprasidone, and aripiprazole. However, weight gain can occur with all of these drugs and considerable variability exists among patients receiving the same drug regarding the risk of metabolic effects. Anti-psychotic agents not only increase the risk of metabolic disorder, they also increase the risk of CVA, akathisia, and movement disorders including EPS or tardive dyskinesia (more common with first generation antipsychotics) and more. [place] stating marleen has medical dxn of [place] from [place] and had test completed per patient. Patient reported tinnitus triggers anxiety and stress in situations, conversations, and effect social interaction, and at work with others 2. Generalized anxiety disorder - Effexor ER 75 mg daily in am - MONITOR B/P educated on rx will titate as needed discuss light box therapy and proper use for depression and seasonal affective d/o Reported tinnitus cause more anxiety with ringing and I am focus on it and not on tasks and conversation ect- educated to see ENT for tinnitus- plan to have hearing test Discuss therapy CAMRYN and patient does not feel a need at this time Medication Management and Follow-Up - Plan: - Schedule follow-up appointments every 1-3 months and PRN to monitor the patient's response to the medication regimen. - Reinforce the importance of avoiding recreational drug use due to potential neurotoxicity and interactions with prescribed medications. 3. Sleep apnea -on CPAP 08/07/2024 Encounter for screening for cardiovascular disorders (ICD-10 - Z13.6) 1. major depression - having depression over last month with lack motivation and interest educated and discuss all rx Effexor ER 75 mg daily in am - improved sexual side effects with GDR Vraylar 1.5 mg daily Add Lamotrigine 25 mg daily for 2 weeks then increase to 50 mg daily educted on rx Lamotrigine lamotrigine has a serious rashes requiring hospitalization and discontinue treatment including Faustino Marck syndrome rare case of toxic epidermal necrolysis and cache related deaths. Incidence with adjunct of epilepsy treatment 0.8% in 2 to 16 years old and 0.3% in adults, bipolar and other mood disorders incidence 0.8% this initial monotherapy and 0.13% as adjunctive treatment. Other risk factor may include concomitant use of valproate acid derivative or exceeding initial lamotrigine does or does as clinician recommendation; most life-threatening rash of occurring first 2 to 8 week of treatment with isolated cases after prolonged treatment; though benign may occur, discontinue treatment at first sign of rash unless clearly not a drug related; TC treatment may not prevent trash from becoming life-threatening or permanently disabling or disfiguring. Comment reaction include, nausea/vomiting, dizziness/vertigo, visual disturbances, somnolence, ataxia, pruritus/rash, pharyngitis, headache, rhinitis, diarrhea, fever, asthenia, insomnia, tremor, abdominal pain, cough, accidental injury, constipation, dysmenorrhea, incoordination, anxiety, seizures, irritability, anorexia, xerostomia, and photosensitivity. Serious reactions include: Rash, severe; Newton Marck syndrome; toxic epidermal necrosis; injury edema, hypersensitivity reactions. Including fatal, multiple organ failure to safe fatal, rash with eosinophilia systemic symptoms, DIC, neutropenia, leukopenia, thrombocytopenia, pancytopenia, aplastic anemia, hemolytic anemia, i pancreatitis, hepatic failure, rhabdomyolysis, worsening of suicidal ideation, worsening of depression, cleft lip/palate [first trimester use] DO not Change Cosmetic, perfumes or soap for next 4 weeks. The patient was advice to take lamotrigine as prescribed the patient was instructed not to deviate from the prescription dosages. Stop lamotrigine is the first sign of rash. Patient was insisted to inform office if any of the serious side effect develops. patient reported had labs done last month and [facility] - PCP depresison and anxiety- patient reported he also gets seasonal affective disorder- discus light box therapy and proper use MONITOR B/P educated patient not able to do disability forms for up to 1 year related patient is new to practice educated on all medications, benefits, side effects and risk, and educated on depression, anxiety, and ADHD, mood d/o and educated on compliance of medications, metabolic and movement d/o education appointment is, continue therapy discussion with patient about course of treatment and patient instructions. education on serotonin syndrome SSRI/SNRI side effects discussed including but not limited to, gastric upset, nausea, vomiting, diarrhea and/or constipation, weight changes, sexual side effects including loss of libido, increased suicidal thoughts/behaviors in children and young adults, and serotonin syndrome. Second generation antipsychotics (SGAs) have metabolic syndrome issues with weight gain, increase in prolactin, increased waist circumference, increased lipids, and increased glucose. Thus routine monitoring of weight, metabolic labs, etc. is indicated. A general rank ordering of antipsychotics that have the greatest to the least risk of metabolic effects is olanzapine, quetiapine, risperidone, ziprasidone, and aripiprazole. However, weight gain can occur with all of these drugs and considerable variability exists among patients receiving the same drug regarding the risk of metabolic effects. Anti-psychotic agents not only increase the risk of metabolic disorder, they also increase the risk of CVA, akathisia, and movement disorders including EPS or tardive dyskinesia (more common with first generation antipsychotics) and more. [place] pateint has medical dx[place] of [place] from [place] and had test completed per patient. Patient reported tinnitus triggers anxiety and stress in situations, conversations, and effect social interaction, and at work with others 2. Generalized anxiety disorder - Effexor ER 75 mg daily in am - MONITOR B/P educated on rx will titate as needed discuss light box therapy and proper use for depression and seasonal affective d/o Reported tinnitus cause more anxiety with ringing and I am focus on it and not on tasks and conversation ect- educated to see ENT for tinnitus- plan to have hearing test Discuss therapy CAMRYN and patient does not feel a need at this time Medication Management and Follow-Up - Plan: - Schedule follow-up appointments every 1-3 months and PRN to monitor the patient's response to the medication regimen. - Reinforce the importance of avoiding recreational drug use due to potential neurotoxicity and interactions with prescribed medications. 3. Sleep apnea -on CPAP 05/08/2024 Encounter for screening for cardiovascular disorders (ICD-10 - Z13.6) 1. major depression -educated and discuss all rx Effexor ER 75 mg daily in am - improved sexual side effects with GDR pcp added Vraylar 1.5 mg last week half and helped CAMRYN will prescribed Vraylar 1.5 mg daily patient reported had labs done last month and [facility] - PCP depresison and anxiety- patient reported he also gets seasonal affective disorder- discus light box therapy and proper use MONITOR B/P educated patient not able to do disability forms for up to 1 year related patient is new to practice educated on all medications, benefits, side effects and risk, and educated on depression, anxiety, and ADHD, mood d/o and educated on compliance of medications, metabolic and movement d/o education appointment is, continue therapy discussion with patient about course of treatment and patient instructions. education on serotonin syndrome SSRI/SNRI side effects discussed including but not limited to, gastric upset, nausea, vomiting, diarrhea and/or constipation, weight changes, sexual side effects including loss of libido, increased suicidal thoughts/behaviors in children and young adults, and serotonin syndrome. Second generation antipsychotics (SGAs) have metabolic syndrome issues with weight gain, increase in prolactin, increased waist circumference, increased lipids, and increased glucose. Thus routine monitoring of weight, metabolic labs, etc. is indicated. A general rank ordering of antipsychotics that have the greatest to the least risk of metabolic effects is olanzapine, quetiapine, risperidone, ziprasidone, and aripiprazole. However, weight gain can occur with all of these drugs and considerable variability exists among patients receiving the same drug regarding the risk of metabolic effects. Anti-psychotic agents not only increase the risk of metabolic disorder, they also increase the risk of CVA, akathisia, and movement disorders including EPS or tardive dyskinesia (more common with first generation antipsychotics) and more. [place] from [place] and had test completed per patient. Patient reported tinnitus triggers anxiety and stress in situations, conversations, and effect social interaction, and at work with others 2. Generalized anxiety disorder - Effexor ER 75 mg daily in am - MONITOR B/P educated on rx will titate as needed discuss light box therapy and proper use for depression and seasonal affective d/o Reported tinnitus cause more anxiety with ringing and I am focus on it and not on tasks and conversation ect- educated to see ENT for tinnitus- plan to have hearing test Discuss therapy CAMRYN and patient does not feel a need at this time Medication Management and Follow-Up - Plan: - Schedule follow-up appointments every 1-3 months and PRN to monitor the patient's response to the medication regimen. - Reinforce the importance of avoiding recreational drug use due to potential neurotoxicity and interactions with prescribed medications. 3. Sleep apnea -on CPAP 08/07/2024 Encounter for screening for depression (ICD-10 - Z13.31) 1. major depression - having depression over last month with lack motivation and interest educated and discuss all rx Effexor ER 75 mg daily in am - improved sexual side effects with GDR Vraylar 1.5 mg daily Add Lamotrigine 25 mg daily for 2 weeks then increase to 50 mg daily educted on rx Lamotrigine lamotrigine has a serious rashes requiring hospitalization and discontinue treatment including Faustino Marck syndrome rare case of toxic epidermal necrolysis and cache related deaths. Incidence with adjunct of epilepsy treatment 0.8% in 2 to 16 years old and 0.3% in adults, bipolar and other mood disorders incidence 0.8% this initial monotherapy and 0.13% as adjunctive treatment. Other risk factor may include concomitant use of valproate acid derivative or exceeding initial lamotrigine does or does as clinician recommendation; most life-threatening rash of occurring first 2 to 8 week of treatment with isolated cases after prolonged treatment; though benign may occur, discontinue treatment at first sign of rash unless clearly not a drug related; TC treatment may not prevent trash from becoming life-threatening or permanently disabling or disfiguring. Comment reaction include, nausea/vomiting, dizziness/vertigo, visual disturbances, somnolence, ataxia, pruritus/rash, pharyngitis, headache, rhinitis, diarrhea, fever, asthenia, insomnia, tremor, abdominal pain, cough, accidental injury, constipation, dysmenorrhea, incoordination, anxiety, seizures, irritability, anorexia, xerostomia, and photosensitivity. Serious reactions include: Rash, severe; Newton Marck syndrome; toxic epidermal necrosis; injury edema, hypersensitivity reactions. Including fatal, multiple organ failure to safe fatal, rash with eosinophilia systemic symptoms, DIC, neutropenia, leukopenia, thrombocytopenia, pancytopenia, aplastic anemia, hemolytic anemia, i pancreatitis, hepatic failure, rhabdomyolysis, worsening of suicidal ideation, worsening of depression, cleft lip/palate [first trimester use] DO not Change Cosmetic, perfumes or soap for next 4 weeks. The patient was advice to take lamotrigine as prescribed the patient was instructed not to deviate from the prescription dosages. Stop lamotrigine is the first sign of rash. Patient was insisted to inform office if any of the serious side effect develops. patient reported had labs done last month and [facility] - PCP depresison and anxiety- patient reported he also gets seasonal affective disorder- discus light box therapy and proper use MONITOR B/P educated patient not able to do disability forms for up to 1 year related patient is new to practice educated on all medications, benefits, side effects and risk, and educated on depression, anxiety, and ADHD, mood d/o and educated on compliance of medications, metabolic and movement d/o education appointment is, continue therapy discussion with patient about course of treatment and patient instructions. education on serotonin syndrome SSRI/SNRI side effects discussed including but not limited to, gastric upset, nausea, vomiting, diarrhea and/or constipation, weight changes, sexual side effects including loss of libido, increased suicidal thoughts/behaviors in children and young adults, and serotonin syndrome. Second generation antipsychotics (SGAs) have metabolic syndrome issues with weight gain, increase in prolactin, increased waist circumference, increased lipids, and increased glucose. Thus routine monitoring of weight, metabolic labs, etc. is indicated. A general rank ordering of antipsychotics that have the greatest to the least risk of metabolic effects is olanzapine, quetiapine, risperidone, ziprasidone, and aripiprazole. However, weight gain can occur with all of these drugs and considerable variability exists among patients receiving the same drug regarding the risk of metabolic effects. Anti-psychotic agents not only increase the risk of metabolic disorder, they also increase the risk of CVA, akathisia, and movement disorders including EPS or tardive dyskinesia (more common with first generation antipsychotics) and more. [place] eloisat has medical dxn of [place]itus from [place] and had test completed per patient. Patient reported tinnitus triggers anxiety and stress in situations, conversations, and effect social interaction, and at work with others 2. Generalized anxiety disorder - Effexor ER 75 mg daily in am - MONITOR B/P educated on rx will titate as needed discuss light box therapy and proper use for depression and seasonal affective d/o Reported tinnitus cause more anxiety with ringing and I am focus on it and not on tasks and conversation ect- educated to see ENT for tinnitus- plan to have hearing test Discuss therapy CAMRYN and patient does not feel a need at this time Medication Management and Follow-Up - Plan: - Schedule follow-up appointments every 1-3 months and PRN to monitor the patient's response to the medication regimen. - Reinforce the importance of avoiding recreational drug use due to potential neurotoxicity and interactions with prescribed medications. 3. Sleep apnea -on CPAP 05/08/2024 Other Diet and Exercise for Metabolic Syndrome: Care Instructions material was published, Learning About Movement Disorders From Antipsychotic Medicines material was published, Cariprazine material was published, Venlafaxine material was published 1. major depression -educated and discuss all rx Effexor ER 75 mg daily in am - improved sexual side effects with GDR pcp added Vraylar 1.5 mg last week half and helped CAMRYN will prescribed Vraylar 1.5 mg daily patient reported had labs done last month and [facility] - PCP depresison and anxiety- patient reported he also gets seasonal affective disorder- discus light box therapy and proper use MONITOR B/P educated patient not able to do disability forms for up to 1 year related patient is new to practice educated on all medications, benefits, side effects and risk, and educated on depression, anxiety, and ADHD, mood d/o and educated on compliance of medications, metabolic and movement d/o education appointment is, continue therapy discussion with patient about course of treatment and patient instructions. education on serotonin syndrome SSRI/SNRI side effects discussed including but not limited to, gastric upset, nausea, vomiting, diarrhea and/or constipation, weight changes, sexual side effects including loss of libido, increased suicidal thoughts/behaviors in children and young adults, and serotonin syndrome. Second generation antipsychotics (SGAs) have metabolic syndrome issues with weight gain, increase in prolactin, increased waist circumference, increased lipids, and increased glucose. Thus routine monitoring of weight, metabolic labs, etc. is indicated. A general rank ordering of antipsychotics that have the greatest to the least risk of metabolic effects is olanzapine, quetiapine, risperidone, ziprasidone, and aripiprazole. However, weight gain can occur with all of these drugs and considerable variability exists among patients receiving the same drug regarding the risk of metabolic effects. Anti-psychotic agents not only increase the risk of metabolic disorder, they also increase the risk of CVA, akathisia, and movement disorders including EPS or tardive dyskinesia (more common with first generation antipsychotics) and more. [place] eloisat has medical dx[place] from [place] and had test completed per patient. Patient reported tinnitus triggers anxiety and stress in situations, conversations, and effect social interaction, and at work with others 2. Generalized anxiety disorder - Effexor ER 75 mg daily in am - MONITOR B/P educated on rx will titate as needed discuss light box therapy and proper use for depression and seasonal affective d/o Reported tinnitus cause more anxiety with ringing and I am focus on it and not on tasks and conversation ect- educated to see ENT for tinnitus- plan to have hearing test Discuss therapy CAMRYN and patient does not feel a need at this time Medication Management and Follow-Up - Plan: - Schedule follow-up appointments every 1-3 months and PRN to monitor the patient's response to the medication regimen. - Reinforce the importance of avoiding recreational drug use due to potential neurotoxicity and interactions with prescribed medications. 3. Sleep apnea -on CPAP Plan Of Treatment No Information Insurance Providers Payer Name Payer Address Payer Phone Subscriber Number Group Number Insured Name Patient Relationship to Insured Coverage Start Date Coverage End Date [place] [address] [address] [place] [address] [id number] CATHERINE GUPTA Self - patient is the insured Medical (General) History Medical History History ICD Code Problems: Generalized anxiety disorder Mild recurrent major depression Moderate recurrent major depression Needle stick injury with contaminated ne edle Overweight Pain of bilateral knee joints Serum creatinine above reference range Sleep apnea Vitamin D deficiency , abdominal aortic aneurysm: No undefined atrial fibrillation: No chronic fatigue syndrome: No essential tremor: No hyperlipidemia: No hypertension: No Parkinson's disease: No restless leg syndrome: No stroke: No subdural hematoma: No type 1 diabetes mellitus: No vitamin B12 deficiency: No vitamin D deficiency: Yes
--- OUTSIDE RECORDS SUMMARY | 2024-08-30 00:24 | XMS_ITS | Clinical Summary ---
Author Organization [facility] Address [address] [place] [address] Care Team Providers Care Social Services Manager Name Role Phone Unavailable Primary Care Provider Unavailabl e Social History Tobacco Use Types Packs/Day Years Used Date Smoking Tobacco: Never Assessed Sex and Gender Information Value Date Recorded Sex Assigned at Not on file Legal Sex Male 11:32 AM CDT Gender Identity Not on file Sexual Orientation Not on file Plan of Treatment Health Maintenance Due Date Last Done Comments DTAP/TDAP/TD VACCINES (1 - Tdap) 1996 HEPATITIS B VACCINES (1 of 3 - 19+ 3-dose series) 1996 01/07/2003 COLORECTAL SCREENING 2022 Colorectal Cancer Screening 2022 FIT-DNA Q 3 years 2022 FIT/FOBT Q 1 year 2022 Flex Sig/CT Colonography Q 5 years 2022 INFLUENZA VACCINE (#1) 2024 HPV VACCINES Aged Out No longer eligi ble based on patient's age to complete this topic Insurance [employer]
--- OUTSIDE RECORDS SUMMARY | 2024-08-30 00:24 | XMS_ITS | Data Portability ---
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 This was provided as follows - To whom it may concern: I saw Mr. Neal today for his sleep apnea. He happens to experience concomitant tinnitus for more than 2 decades. Research shows that sleep apnea and tinnitus commonly co-exist. Roughly 30% of people with sleep apnea also experienced tinnitus. One of the primary theories is tied to the oxygen loss that occurs when a person has sleep apnea. People with sleep apnea stop breathing during the night. This leads to a lowered total level of oxygen in the body, which can damage cells in the ears. This damage can result in tinnitus. Another theory is linked to the loud snoring associated with sleep apnea. Frequent exposure to loud noises is a known risk factor for tinnitus. So, it s possible hearing nightly snoring could lead to tinnitus. The patient currently takes meloxicam. Sometimes, tinnitus can also be the result of nonsteroidal anti-inflammatory drugs (NSAIDs). It is my professional opinion that it is at least as likely as not that the s sleep apnea and tinnitus are related. PAP compliance downloaded and interpreted x 20 minutes. Data reviewed and explained to the patient. Average apnea/hypopnea index (AHI) is 0.9. Patient used PAP > 4 hours 18% of the time. PAP is set at 5-15 cmH2O. PAP will be reset at 4-7 cmH2O. Change EPR from +1 to +3. Oxygen supplementation: none Patient is benefiting from PAP therapy. Encouraged patient to maintain PAP use more than 70% of the time. Statement of PAP use and benefits will be sent to the home care store. Educated the patient on problems and solutions associated with positive airway pressure (PAP) use. Difficulty tolerating pressure, mask leaks, intolerance of interface, nasal congestion, claustrophobic response, dry mouth, and unintentional mask removal during sleep were covered. Patient has some difficulty tolerating pressure. Patient is advised to practice wearing PAP daily while awake, lower pressure with or without sleeping on sides, activate PAP ramp feature, have blower checked to make sure pressure is set as prescribed and return to sleep center for consideration of auto-adjusting PAP therapy. Provided the patient with a list of local home care stores where positive airway pressure (PAP) units, accoutrement, and services are available. Home care store selection is based on patient's insurance carrier. Patient will setup an appointment with [facility] for supplies and pressure adjustments. A major predictor of success with use of PAP is follow-up with both the respiratory supplier and the treating physician. The download results can show the treating physician information about adherence to treatment, residual AHI while on treatment and presence of large mask leakage. This information is especially helpful if the patient has residual sleepiness despite treatment. General information on sleep disordered breathing, evaluation of sleep disordered breathing, treatment with PAP therapy, and living with PAP therapy were covered. We discussed with the patient the impact of weight on: Sleep disordered breathing We discussed with the patient the benefit of PAP therapy on: Sleep disordered breathing Rhinitis Educated the patient on sleep hygiene measures. Relaxing rituals to rest easy, understanding foods with positive and negative impact on sleep, creating a peaceful sleep environment, timing of exercise, using herbal sleep aids, and practicing sleep-friendly meditation were covered. To determine how much sleep is needed, the patient will assess where he falls on the spectrum, examine what lifestyle factors such as work schedules and stress are affecting the quality and quantity of sleep. In general, adults need 7-9 hours of sleep. Educated the patient regarding foods that promote sleep. These include but are not limited to cherries, bananas, toast, oatmeal, and warm milk. Educated the patient regarding foods and drinks to avoid before bedtime. These include but are not limited to aged cheese, chocolate, spicy foods, tomato-based sauces, soy, ginseng tea and processed meat. Advocated influenza vaccination annually and pneumonia vaccination in 2042. Advocated weight loss through diet and exercise. Patient's ideal body weight according to height and gender is up to 155 lbs,. Encouraged patient to adjust caloric intake to maintain/achieve ideal body weight, emphasizing on fruits, vegetables, whole grains, and fat-free or low-fat products. These include lean meats, poultry, fish, beans, eggs, and nuts and foods that are low in saturated fats, trans-fats, cholesterol, salt (sodium), and glycemic index. Stressed the importance of regular exercise up to the patient's capacity limits. In this case, we recommend 20 min daily walking, 2 days a week of resistance training. Patient to monitor BP daily and bring records to PCP for further management. Follow-up: 1 year, July 2024 Spent 60 minutes: 1. preparing to see the patient (eg, review of tests), 2. obtaining and/or reviewing separately obtained history, 3. performing a medically appropriate examination and evaluation, 4. counseling and educating the patient, 5. ordering medications and tests, 6. documenting clinical information in the electronic health record, 7. independently interpreting results, and 8. communicating results to the patient. Not available 07/21/2023 15:32:52 04/26/2024 04/26/2024 Explained about different options for him. Samples of Vraylar 1.5mg given to pt. Advised pt to verify with his Psychiatrist about it. F/u as directed for Annual exam. [email or web address] Not available 04/26/2024 11:14:29 05/28/2024 05/28/2024 Assessment: Generalized anxiety disorder Bilateral tinnitus Rhinitis Mild OSAHS, AHI = 6 Plan: The following were reviewed and explained to the patient: [facility] home sleep study 04/02/23 AHI = 6, supine AHI = 7 Patient requested a NEXUS letter to establish a connection between his generalized anxiety disorder and obstructive sleep apnea hypopnea syndrome. The letter is provided as follows - I saw Mr. Neal today for his obstructive sleep apnea hypopnea syndrome (OSAHS). He happens to experience concomitant generalized anxiety disorder (WILLY). WILLY often leads to insomnia, fragmented sleep, and heightened nighttime arousal all of which can contribute to or worsen OSAHS. The [place] currently takes venlafaxine (a serotonin-norepine phrine reuptake inhibitor) and Vraylar (cariprazine, an atypical antipsychotic) to manage symptoms of WILLY. Both medications may cause sedation and muscle relaxation factors which can negatively impact upper airway tone and contribute to worsening OSAHS. WILLY and associated pharmacological treatment can lead to metabolic and physiological changes, including weight gain, increased sympathetic activity, and poor sleep architecture, all of which are contributors to OSAHS. It is my professional opinion that it is at least as likely as not that the s WILLY, associated treatment regimen and OSAHS are related. We will try to obtain septoplasty records from Dr. Eh Winter. Patient will have a repeat diagnostic sleep study to determine if he still has residual OSAHS after nasal septoplasty. PAP compliance downloaded and interpreted x 20 minutes. Data reviewed and explained to the patient. Average apnea/hypopnea index (AHI) is 1.0. Patient used PAP > 4 hours 21% of the time. PAP is set at 4-7 cmH2O. PAP will be reset at 4-10 cmH2O per patient request until repeat diagnostic sleep study is done. Keep EPR +3. Keep humidifier level on automatic mode. Keep tube temperature on automatic mode. Oxygen supplementation: none Patient is benefiting from PAP therapy. Encouraged patient to maintain PAP use more than 70% of the time. Statement of PAP use and benefits will be sent to the home care store. Educated the patient on problems and solutions associated with positive airway pressure (PAP) use. Difficulty tolerating pressure, mask leaks, intolerance of interface, nasal congestion, claustrophobic response, dry mouth, and unintentional mask removal during sleep were covered. Provided the patient with a list of local home care stores where positive airway pressure (PAP) units, accoutrement, and services are available. Home care store selection is based on patient's insurance carrier. Patient will setup an appointment with [facility] for supplies and pressure adjustments. A major predictor of success with use of PAP is follow-up with both the respiratory supplier and the treating physician. The download results can show the treating physician information about adherence to treatment, residual AHI while on treatment and presence of large mask leakage. This information is especially helpful if the patient has residual sleepiness despite treatment. General information on sleep disordered breathing, evaluation of sleep disordered breathing, treatment with PAP therapy, and living with PAP therapy were covered. We discussed with the patient the impact of weight on: Sleep disordered breathing We discussed with the patient the benefit of PAP therapy on: Sleep disordered breathing Rhinitis Anxiety Educated the patient on sleep hygiene measures. Relaxing rituals to rest easy, understanding foods with positive and negative impact on sleep, creating a peaceful sleep environment, timing of exercise, using herbal sleep aids, and practicing sleep-friendly meditation were covered. To determine how much sleep is needed, the patient will assess where he falls on the spectrum, examine what lifestyle factors such as work schedules and stress are affecting the quality and quantity of sleep. In general, adults need 7-9 hours of sleep. Educated the patient regarding foods that promote sleep. These include but are not limited to cherries, bananas, toast, oatmeal, and warm milk. Educated the patient regarding foods and drinks to avoid before bedtime. These include but are not limited to aged cheese, chocolate, spicy foods, tomato-based sauces, soy, ginseng tea and processed meat. Advocated influenza vaccination annually and pneumonia vaccination in 2042. Advocated weight loss through diet and exercise. Patient's ideal body weight according to height and gender is up to 155 lbs,. Encouraged patient to adjust caloric intake to maintain/achieve ideal body weight, emphasizing on fruits, vegetables, whole grains, and fat-free or low-fat products. These include lean meats, poultry, fish, beans, eggs, and nuts and foods that are low in saturated fats, trans-fats, cholesterol, salt (sodium), and glycemic index. Stressed the importance of regular exercise up to the patient's capacity limits. In this case, we recommend 20 min daily walking, 2 days a week of resistance training. Patient to monitor BP daily and bring records to PCP for further management. Follow-up: 1 week after diagnostic sleep study Not available 05/28/2024 12:43:38 Plan of Treatment Reminders Order Date Submit Date Provider Last Modified By Organization Details Last Modified Time Details Appointments None recorded. Lab testosteron e, free + total, serum 2024 025 [facility], [address], [place], [address], 5 14:20:50 cobalamin and folate panel, serum 2024 025 [email or web address] [id number] [facility], [address], [place], [address], 5 14:28:02 vitamin D, 25-hydroxy, total, serum 2024 025 [facility], [address], [place], [address], 5 14:20:49 magnesium, serum or plasma 2024 025 [facility], [address], [place], [address], 5 14:20:47 Referral gastroenter ologist referral - Chronic abdominal bloating, wants to do EGD & c-scope. Please call patient to schedule an appointment . Thank you. 2024 025 [email or web address] [facility], [address], [address], [place], [address], 5 09:16:19 Procedures None recorded. Surgeries None recorded. Imaging polysomnogr am, diagnostic, 6 yrs or older - Please call patient to schedule. 2024 025 [email or web address] [facility] ([facility]), [address] [facility], [place], [address], 5 11:17:14 Medication Orders famotidine 20 mg tablet 2024 025 [facility] [address], [place], [address], 5 09:42:20 cephalexin 500 mg capsule [email or web address] [facility] [address], [address], [place], [address], 09:42:15 Patient TargetsNo targets recorded. Patient InstructionsNo instructions recorded. Reason for Referral Histology Technician Referral for Screening colonoscopy Chronic abdominal bloating, wants to do EGD & c-scope. Chronic abdominal bloating, wants to do EGD & c-scope. Please call patient to schedule an appointment. Thank you. Referring Physician: Mark Almeida, Family Medicine, Encounter Date: 05/14/2024 Results Created Date Observation Date Name Description Value Unit Range Abnormal Flag Note LastModifiedBy Organization Detail LastModifiedTime 02/16/1902/22/2024 MAGNE SIUM magnesium 2.1 mg/dL 1.5-2. 5 normal Not Available [employer] [place] [address] [place], [address], 02/22/2024 14:20:47 02/16/1902/22/2024 VITAM IN B12/F OLATE , SERUM PANEL vitamin B12 703 pg/mL 200-11 00 normal Not Available [employer] [place] [address] [place], [address], 02/22/2024 14:20:49 02/16/1902/22/2024 VITAM IN B12/F OLATE , SERUM PANEL folate, serum 15.1 NG/mL normal Refer ence Range Low: <3.4 Borde rline : 3.4-5 .4 Mandi l: >5.4 Not Available [employer] [place] [address] [place], [address], 02/22/2024 14:20:49 02/16/1902/22/2024 VITAM IN D,25- OH,TO KONRAD,I A vitamin D,25-oh,tota l,ia 45 NG/mL 30-100 normal Vitam in D Statu s 25-OH Vitam in D: Defic iency : <20 ng/mL Insuf ficie ncy: 20 - 29 ng/mL Optim al: > or = 30 ng/mL For 25-OH Vitam in D testi ng on patie nts on D2-diaz pplem entat ion and patie nts for whom quant itati on of D2 and D3 fract ions is requi red, the [employer] Assur eD(TM ) 25-OH VIT D, (D2,D 3), LC/MS /MS is recom brice d: order code 31053 (cale ents >2yrs ). See Note 1 Note 1 For addit ional missyr leonel brown refer to http: //[facility] nVictor M stDia gnost ics.c om/fa q/FAQ 199 (This link is being provi ded for infor jefferson nal/ educa fletcher l purpo ses only. ) Not Available [employer] [facility] [address] [place], [address], 02/22/2024 14:20:49 02/16/19 25 02/22/2024 TESTO STERO NE, FREE (DIAL YSIS) AND TOTAL ,MS testosterone , total, MS 743 NG/dL 250-11 00 For addit ional missyr leonel brown refer to https ://ed ucati on.qu [employer]/f aq/FA Q165 (This link is being provi ded for infor matio nal/e ducat ional purpo ses only. ) (Note ) This test was devel oped and its elena tical perfo rmanc e patito cteri stics have been deter mined by [employer]. It has not been clear ed or appro megan by the FDA. This assay has been valid ated pursu ant to the CLIA regul ation s and is used for clini yasmany purpo ses. Not Available [employer] [facility] [address] [place], [address], 02/22/2024 14:20:50 02/16/1902/22/2024 TESTO STERO NE, FREE (DIAL YSIS) AND TOTAL ,MS testosterone , free 96.3 pg/mL 35.0-1 55.0 (Note ) This test was devel oped and its elena tical perfo rmanc e patito cteri stics have been deter mined by [employer]. It has not been clear ed or appro megan by the FDA. This assay has been valid ated pursu ant to the CLIA regul ation s and is used for clini yasmany purpo ses. TREV med fusmil n [address] [facility] [address] [place] [address] [phone] Ithie l Maico Newell MD, PhD Not Available [employer] [facility] [address] [place], [address], 02/22/2024 14:20:50 Result Notes None recorded. Problems Name Problem SNOMED Code Status Onset Date Resolution Date Notes Provider Name and Address Organization Details Recorded Time Vitamin D deficiency 86915591 Active 2023 Mark Almeida MD [address], [place], [address], [employer] 4 16:00:18 Serum creatinine above reference range 839213646 Active 2023 Mark Almeida MD [address], [place], [address], [employer] 4 16:04:51 Bilateral tinnitus 1079224262260 Active 2024 Mark Almeida MD [address], [place], [address], [employer] 5 15:13:51 Sleep apnea 20940744 Active 2024 Mark Almeida MD [address], [place], [address], [employer] 5 10:53:56 Blepharitis of right eyelid 1823913039169 03 Active 2024 Mark Almeida MD [address], [place], [address], [employer] 5 15:49:02 Obstructive sleep apnea syndrome 18737376 Active 2024 Boston Morin MD [address] [facility], [address], [place], [address] , [facility] 09:21:03 Notes:Medical History: Gener alized anxiety disorder Bilateral tinnitus Rhinitis Mild OSAHS, AHI = 6, 04/02/23, on autoCPAP c/o IVRC Vit D deficiency Procedure History: Septoplasty/Turbinoplasty c/o Dr. 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 Medical Equipment None Reported. Allergies No known drug allergies Medications Name Sig Start Date Stop Date Status Note LastModified by Organization Details LastModified Time venlafaxine ER 37.5 mg capsule,ext ended release 24 hr TAKE 1 CAPSULE BY MOUTH ONCE DAILY IN THE MORNING 02/15 completed Not Available Not Available Not Available venlafaxine ER 75 mg capsule,ext ended release 24 hr TAKE 1 CAPSULE BY MOUTH ONCE DAILY IN THE MORNING active Not Available Not Available No t Available hydrocodone 5 mg-acetamin ophen 325 mg tablet TAKE 1 TO 2 TABLETS BY MOUTH EVERY 4 HOURS NEEDED FOR PAIN. MAX 10 PER DAY. 02/15 completed Not Available Not Available Not Available meloxicam 15 mg tablet TAKE 1 TABLET BY MOUTH ONCE DAILY 05/28 completed Not Available Not Available Not Available prednisone 20 mg tablet 2 tabs po daily for 2 days, then 1 tab po for 3 days. active Not Available Not Available No t Available venlafaxine ER 150 mg capsule,ext ended release 24 hr TAKE 1 CAPSULE BY MOUTH ONCE DAILY IN THE MORNING 04/26 completed Not Available Not Available Not Available sulfamethox azole 800 mg-trimetho prim 160 mg tablet TK 1 T PO Q 12 H 12/11 completed Not Available Not Available Not Available doxycycline monohydrate 100 mg tablet TAKE 1 TABLET BY MOUTH TWICE DAILY FOR 7 DAYS 02/15 completed Not Available Not Available Not Available famotidine 20 mg tablet TAKE 1 TABLET BY MOUTH TWICE DAILY DIRECTED 2024 active Not Available Not Available Not Avai lable cephalexin 500 mg capsule TAKE 1 CAPSULE BY MOUTH THREE TIMES DAILY DIRECTED FOR 7 DAYS 05/28 completed Not Available Not Available Not Available diclofenac sodium 75 mg tablet,quique yed release Take 1 tablet twice a day by oral route. active Not Available Not Available No t Available ergocalcife rol (vitamin D2) 1,250 mcg (50,000 unit) capsule TAKE 1 CAPSULE BY MOUTH ONCE A WEEK DIRECTED 05/28 completed Not Available Not Available Not Available methylpredn isolone 4 mg tablets in a dose pack TK UTD 06/29 completed Not Available Not Available Not Available emtricitabi ne 200 mg-tenofovi r disoproxil fumarate 300 mg tablet TAKE 1 TABLET BY MOUTH DAILY 03/03 completed Not Available Not Available Not Available Tivicay 50 mg tablet TAKE 1 TABLET BY MOUTH DAILY 12/11 completed Not Available Not Available Not Available Vraylar 1.5 mg capsule TAKE 1 CAPSULE BY MOUTH ONCE DAILY active Not Available Not Available No t Available Vitals Date Recorded Oxygen saturation Oxygen saturation in Arterial blood by Pulse oximetry Provider Name and Address Organization Details Last Updated DateTime 02/16/2024 97 % 97 % Mark Almeida MD [address], [place], [address], [facility] [employer] [facility] 02/16/2024 15:11:34 Date Recorded Body height Body mass index (BMI) Body weight Body temperature Heart rate Systolic And Diastolic Provider Name and Address Organization Details Last Updated DateTime 167.64 cm 29.4 kg/m2 97916.2 6 g 98 [degF] 66 /min 120/80 mm[Hg] Dianne Gooden RN [facility] [employer] [facility] 15:04:31 Date Recorded Oxygen saturation Oxygen saturation in Arterial blood by Pulse oximetry Provider Name and Address Organization Details Last Updated DateTime 04/26/2024 96 % 96 % Mark Almeida MD [address], [place], [address], [facility] [employer] [facility] 04/26/2024 11:12:49 Date Recorded Body height Body mass index (BMI) Body weight Body temperature Heart rate Systolic And Diastolic Provider Name and Address Organization Details Last Updated DateTime 167.64 cm 29.9 kg/m2 14224.3 9 g 97.4 [degF] 66 /min 126/80 mm[Hg] Dianne Gooden RN [employer] [facility] [employer] 5 10:58:09 Date Recorded Heart rate Provider Name an d Address Organization Details Last Updated DateTime 05/14/2024 56 /min Enedina Barnett [address], [employer], [place], [address], [employer] [facility] [employer] 05/14/2024 15:55:46 Date Recorded Body height Body mass index (BMI) Body weight Body temperature Oxygen saturation Oxygen saturation in Arterial blood by Pulse oximetry Systolic And Diastolic Provider Name and Address Organization Details Last Updated DateTime 167.64 cm 29.6 kg/m2 04002.4 5 g 97.2 [degF] 95 % 95 % 110/70 mm[Hg] Dianne Gooden RN [employer] [facility] [employer] 15:43:26 Date Recorded Heart rate Respiratory rate Provider N suresh and Address Organization Details Last Updated DateTime 05/28/2024 69 /min 14 /min Boston Morin MD [address], [employer], [place], [address], [employer] 05/28/2024 10:06:08 Date Recorded Body height Body mass index (BMI) Body weight Body temperature Heart rate Oxygen saturation Oxygen saturation in Arterial blood by Pulse oximetry Systolic And Diastolic Provider Name and Address Organization Details Last Updated DateTime 167.64 cm 29.9 kg/m2 82289.5 9 g 98.1 [degF] 69 /min 96 % 96 % 114/76 mm[Hg] Jemma Tapia MA [employer] [facility] [employer] 09:45:44 Date Recorded Heart rate Respiratory rate Provider N suresh and Address Organization Details Last Updated DateTime 07/21/2023 64 /min 15 /min Boston Morin MD [address] [employer], [place], [address], [employer] [facility] [employer] 07/21/2023 10:52:36 Date Recorded Body height Body mass index (BMI) Body weight Body temperature Heart rate Oxygen saturation Oxygen saturation in Arterial blood by Pulse oximetry Systolic And Diastolic Provider Name and Address Organization Details Last Updated DateTime 4 167.64 cm 27.8 kg/m2 54482.8 9 g 97.7 [degF] 64 /min 98 % 98 % 122/74 mm[Hg] Stella Grace CMA [place] [facility] 4 10:04:54 Social History Question Answer Notes LastModified by Organizat ion Details LastModified Time Tobacco Smoking Status Never Smoker Not Available [employer] 04/07/2022 08:06:09 What Is Your Level Of Caffeine Consumption? Occasional [id number] Information not available 04/07/2022 In The 14 Days Before Symptom Onset, Have You Had Close Contact With A Laboratory-confir med COVID-19 While That Case Was Ill? No [id number] Information not available 04/07/2022 In The 14 Days Before Symptom Onset, Have You Had Close Contact With A Person Who Is Under Investigation For COVID-19 While That Person Was Ill? No MIGRATION.[id number] Information not available 04/07/2022 What Type Of Diet Are You Following? REGULAR MIGRATION.61154 62274 Information not available 04/07/2022 Do You Have An Electrostatic Air Filter? No Information not available 04/12/2023 Have There Been Any Changes To Your Family Or Social Situation? No MIGRATION.80934 [id number] Information not available 04/07/2022 What Is The Fluoride Status Of Your Home? Fluoridated MIGRATION.31891 51939 Information not available 04/07/2022 Do You Have A Humidifier? No Information not available 04/12/2023 Where Do You Live? [place]House MIGRATION.59029 89686 Information not available 04/07/2022 Do You Have Moisture Problems In Your Home? No Information not available 04/12/2023 What Was The Date Of Your Most Recent Tobacco Screening? 05/28/2024 Information not available 05/28/2024 Do You Have Any Pets? Yes MIGRATION.[id number] Information not available 04/07/2022 What Is Your Relationship Status? MIGRATION.36473 08981 Information not available 04/07/2022 Do You Use Your Seat Belt Or Car Seat Routinely? Yes Information not available 04/12/2023 Do You Have Smoke And Carbon Monoxide Detectors In Your Home? Yes MIGRATION.72080 43479 Information not available 04/07/2022 Are You Passively Exposed To Smoke? No MIGRATION.11940 16143 Information not available 04/07/2022 Are There Any Smokers In Your House? No MIGRATION.44955 88739 Information not available 04/07/2022 Do You Participate In Social Media? Yes MIGRATION.74790 49300 Information not available 04/07/2022 Do You Use Sunscreen Routinely? No Information not available 04/12/2023 Have You Recently Traveled Abroad? No MIGRATION.77082 25708 Information not available 04/07/2022 Are You Currently In School? No MIGRATION.57265 71207 Information not available 04/07/2022 Sex: Male Functional Status Question Answer Note LastModified by [employer] Details LastModified Time Do you use any illicit or recreational drugs? No MIGRATION.216691 2728 Information not available 04/07/2022 What is your level of alcohol consumption? Occasional MIGRATION.873713 2188 Information not available 04/07/2022 Have you been exposed to chemicals or toxins? not that aware of Information not available 04/12/2023 What is your exercise level? Moderate MIGRATION.[id number] 6141 Information not available 04/07/2022 Mental Status Question Answer Note LastModified by [employer] Details LastModified Time Do you feel stressed (tense, restless, nervous, or anxious, or unable to sleep at night)? [id number] [id number] Information not available 04/07/2022 Family History Relationship Description Onset Age of this Age Resolved Age Notes LastModified by Organization Details LastModified Time Father Low back pain [email or web address] Not available 2023 10:16:41 Father Smoker [email or web address] Not available 06/2023 10:16:56 Father Harmful pattern of use of alcohol [email or web address] Not available 2023 10:17:14 Mother Smoker [email or web address] Not available 06/2023 10:17:01 Medical History Condition Response BLINDNESS N RHEUMATIC FEVER N KIDNEY STONES N BLADDER PROBLEMS N MRSA N OTHER # 1 N POLIO N LUNG DISEASE/DISORDER N HISTORY OF DRUG ABUSE N COPD N RADIATION / CHEMOTHERAPY N Other # 2 N BLOOD DISEASES N SURGERY N EAR OR HEARING PROBLEMS N MUMPS N SHINGLES N FEMALE PROBLEMS / INFECTIONS N DEPRESSION (INCLUDING POST ) N BOWEL PROBLEMS N STROKE/TIA N THYROID DISEASE N ULCERS N BENIGN PROSTATIC HYPERPLASIA N MEASLES N CERVICALGIA N HYPOTENSION N TB SKIN TEST N MYOCARDIAL INFARCTION N OBESITY N PARAPELGIA N GERD/NAUSEA N ANEURYSM N URINARY/BLADDER/KIDNEY PROBLEMS N CORONARY ARTERY DISEASE (CAD) N MENIERE'S DISEASE N ADDICTION CONCERNS N ENDOMETRIOSIS N USE OF BLOOD THINNERS N SKIN PROBLEMS N EMPHYSEMA N GASTROINTESTINAL DISORDER N MUSCLE,JOINT OR BONE PROBLEMS N GASTROINTESTINAL BLEEDING N BLOOD CLOTS N ASTHMA N CATARACTS N ERECTILE DYSFUNCTION N GI PROBLEMS N CHF N Low Testosterone N NEUROPATHY N INFERTILITY N AIDS/HIV N FRACTURES N CHEMOTHERAPY / RADIATION N VISION/EYE PROBLEMS N LIVER DISEASE N MALE HYPOGONADISM N HYPERTENSION N TOURETTE'S N ANXIETY DISORDER N BLOOD TRANSFUSION N ANEMIA/BLOOD DISORDER N CHRONIC EAR INFECTIONS N BRONCHITIS N TUBERCULOSIS N GLAUCOMA N FOOT PROBLEM N DIVERTICULITIS N CHICKENPOX N SLEEP APNEA N ALLERGIES/HAYFEVER N INFECTIOUS DISEASE N HEART ARRHYTHMIA N PROSTATE N INSOMNIA N HIGH CHOLESTEROL / HYPERLIPIDEMIA N EYE PROBLEMS N HYPERTHYROIDISM N EATING DISORDER N EDEMA N CHRONIC PAIN SYNDROME N CAROTID BLOCKAGE N CONSTIPATION N BACK / NECK PROBLEMS N HAVE YOU BEEN HOSPITALIZED OR SEEN IN [facility] IN THE PAST YEAR ? N ATHEROSCLEROSIS N BREAST PROBLEMS N DIALYSIS N ECZEMA N FIBROMYALGIA N OSTEOPOROSIS N ARTHRITIS N NO SIGNIFICANT PAST MEDICAL HISTORY N APPENDICITIS N DIABETES, TYPE N BAD TEETH N HEARTBURN / REFLUX N ADD/ADHD N AUTISM SPECTRUM DISORDER (ASD) N HEPATITIS / LIVER DISEASE N PULMONARY DISEASE N GOUT N SLEEP DISORDER N ALZHEIMER'S DISEASE N PAIN N HERPES N DEMENTIA N SEIZURES/EPILEPSY N HEADACHES/MIGRAINES N VASCULAR DISEASE N PACEMAKER N DIZZINESS N KIDNEY DISEASE N HEART DISEASE/HEART PROBLEMS N SCARLET FEVER N MULTIPLE SCLEROSIS N MENTAL DISORDER/ILLNESS N DEVELOPMENTAL OR BEHAVIORAL DISORDERS N CARDIAC ARRHYTHMIA N CANCER: SPECIFY N PNEUMONIA N Gall Stones N ATRIAL FIBRILLATION N PULMONARY EMBOLISM N AUTOIMMUNE DISEASE N Immunizations Vaccine Type Date Status Note Provider Nam e and Address Organization Details Recorded Time Tdap 11/30/2021 completed Not Available [employer] 04/07/2022 08:12:25 Past Encounters Encounter ID Performer Location Encounter Start Date Encounter Closed Date Diagnosis/Indication Diagnosis SNOMED-CT Code Diagnosis ICD10 Code Diagnosis Note [id number] Mark Almeida MD [facility] [address] [address] 12/11/2021 00:00:00 12/11/2021 16:59:01 [id number] Mark Almeida MD [facility] [address] [place] [address] 12/15/2021 00:00:00 12/15/2021 10:38:46 [id number] Mark Almeida MD [facility]_[address] [address] 03/03/2023 16:06:23 03/03/2023 16:39:07 Adult health examination 873857391 Z00.00 Pain of bi lateral knee joints 7764184875 77062 M25.561 Screening for malignant neoplasm of colon 314459118 Z12.11 Overweight 355644665 E66 .3 [id number] Mark Almeida MD [facility]_[address] [address] 03/24/2023 15:47:07 03/24/2023 16:15:35 Pain of bilateral knee joints 4307969750 37061 M25.561 Overweight 747794860 E66 .3 Vitamin D deficiency 347 88547 E55.9 Serum crea tinine above reference range 400308457 R79.89 Sleep apnea 15888589 G47 .30 Increased stress 4012074 4 Z73.3 [id number] Alexandr Castillo MD [facility] [place] [address] [place] [address] 04/06/2023 10:02:39 04/06/2023 11:06:34 Pain of bilateral knee joints 2653877041 55577 M25.561 M25.738 [id number] Boston Morin MD [facility] Pul[place] [address] [address] 04/12/2023 09:36:45 04/13/2023 08:51:08 Obstructive sleep apnea syndrome 10060948 G47.33 G47.36 G47.61 [id number] Alexandr Csatillo MD [facility] [place] [address] [place] [address] 06/01/2023 10:15:30 06/01/2023 10:47:39 Pain of bilateral knee joints 6641416493 90713 M25.561 M25.623 [id number] Boston Morin MD [facility] Pul[facility]olo [facility] [place] [address] [facility] [address] [place] [address] 07/21/2023 09:41:23 07/22/2023 08:38:24 Obstructive sleep apnea syndrome 55580505 G47.33 [id number] Mark Almeida MD [address] [address] 02/16/2024 14:53:30 02/16/2024 15:26:28 Lack of energy 192001928 R53.83 Fatigue 74381860 R53.83 Bilateral tinnitus 09786 92503 102 H93.13 Cont f/u with ENT as per schedule. Pain of bi lateral knee joints 9885833016 99234 M25.561 Chronic - Cont f/u with Ortho as per schedule. Sleep apnea 74001641 G47 .30 Overweight 801523787 E66 .3 Vitamin D deficiency 347 38546 E55.9 [id number] Mark Almeida MD [address] [address] 04/26/2024 10:50:04 04/26/2024 11:15:52 Lack of energy 640570485 R53.83 Fatigue 49601017 R53.83 Bilateral tinnitus 74549 04313 102 H93.13 Cont f/u with ENT as per schedule. Pain of bi lateral knee joints 6418749825 79048 M25.561 Chronic - Cont f/u with Ortho as per schedule. Sleep apnea 34944872 G47 .30 Vitamin D deficiency 347 00396 E55.9 Improved Overweight 760616243 E66 .3 [id number] Mark Almeida MD [address] [address] 05/14/2024 15:35:43 05/14/2024 16:36:00 Blepharitis of right eyelid 5562124239 79741 H01.003 Upper Screening colonoscopy 44 9856526 Z12.11 Abdominal bloating 34376 9008 R14.0 [id number] Boston Morin MD [facility] Pulmonolo gy [address] [address] 05/28/2024 09:05:05 05/29/2024 16:02:39 Obstructive sleep apnea syndrome 05377888 G47.33 Health Concerns Section Related Observation LastModified by Organization Detai ls LastModified Time None Recorded Concern Status LastModified by Organization Details LastModified Time None Recorded Advance Directives Directive None Recorded Payers Insurance Date Sequence Insurance Name Policy Number Policy Redman Covered Member ID Redman Member ID Guarantor Name 02/16/2024 1 [facility] - [facility] - DOS PRIOR TO 2024 (PPO) Marcelino Neal [id number] Marcelino Neal III 04/07/2022 [employer]) [employer] Marcelino Neal III 06/23/2024 1 R - GE - [facility] - DOS 02/08/2024 AND AFTER [id number] Marcelino Keeny [id number] Marcelino Keeny III 02/29/2024 1 [employer] - DOS PRIOR TO 2024 (PPO) Marcelino Neal III [id number] Marcelino Neal III Notes Date Note Type Note Provider Name and Address Organization Details Recorded Time 07/21/2023 text/html Primary care/Ref erring provider: Mark Almeida MD During the [facility] home sleep study on 04/02/23 AHI = 6, supine AHI = 7. At home since 06/17/23, the patient uses a ResMed AirSense 11 autoset unit with heated humidification. The patient does not need the ramp to start low and go up slowly on the pressure. There is no xerostomia in a.m. There is no hose/mask condensation with water. The patient switched from a Respironics small Dream Wear nasal mask to ResMed AirFit N30i nasal mask without chin strap. There is no claustrophobia, no nostril/nose bridge irritation, no facial rash, no facial numbness, no nosebleeding. The patient feels more refreshed upon waking and daytime alertness is improved. Energy levels are sustained until noon. At home, the patient sleeps from 10 pm to 5 am and wakes up without an alarm. Snoring: heavy, since .Snorting: yesChoking: noCoughing: noGasping: yesGagging: noSighing: yesWitnessed apnea: yesTwitching or jerking of leg(s), arm(s), body, head: yesTeeth grinding: noTeeth clenching: noSleeptalking: yesSleepwalking: noSleep crying: noBedwetting: noTongue/lip/gum/cheek biting: noSleeping with open mouth: yesSleep paralysis: noHypnagogic hallucinations: noHypnopompic hallucinations: noVivid dreams: noDifficulty with sleep onset: yesDifficulty with sleep maintenance: yesSleep interruptions: for no known reasonsPatient wakes up with: fatigue, xerostomia, disorientation, cognitive impairment, mobility impairment, dexterity impairmentDaytime cataplexy: noMorning hypersomnolence: yesAfternoon hypersomnolence: yesCaffeine sources in diet: coffee 4.5 cups per day, tea 1 cup per week, soda 1 can per week, chocolate 1 handful coffee beans per season Associated medical and psychiatric conditions:Congestive heart failure: noCoronary artery disease: noMyocardial infarction: noHypertension: noStroke: noBronchial asthma: noChronic obstructive pulmonary disease: noDepression: noBipolar disorder: noAnxiety: noPanic disorder: noPosttraumatic stress disorder: noAttention deficit and hyperactivity disorder: noObsessive Compulsive disorder: noSchizophrenia: noSchizoaffective disorder: noPersonality disorder: noChronic analgesic use: noChronic sedative/hypnotic use: no EPWORTH SLEEPINESS SCALE (ESS) CHANCE OF DOZING SCORE0 = would never doze1 = slight chance of dozing2 = moderate chance of dozing3 = high chance of dozing SITUATION AND CHANCE OF DOZINGSitting and reading - 2Watching television - 2Sitting inactive in a public place (e.g. a theater or meeting) - 2As a passenger in a car for an hour without a break - 2Lying down to rest in the afternoon when circumstances permit - 3Sitting and talking to someone - 1Sitting quietly after lunch without alcohol - 2In a car, while stopped for a few minutes in the traffic -1TOTAL SCORE 15Subjectively, patient has a slight chance of dozing. Boston Morin MD [address] [facility], [facility] [address], [place], [address], [employer] [facility] [employer] 07/21/2023 15:33:14 02/16/2024 text/html ACV: Pt wants to check his T-level for his low energy, fatigue concerns. Denies any mood concern. Pt is claiming some disability things with his VA insurance and he needs some paperwork for it to be done. Pt has chronic b/l knee pain and he has seen Ortho for it. Pt has chronic b/l tinnitus and is f/u with ENT for it. Pt is f/u with Psych at [facility] for his depression and PTSD and is on meds by them. Pt has ISABEL and he has C-pap. Mark Almeida MD [address] [facility], [facility] [address], [place], [address], [employer] 02/16/2024 16:38:46 04/26/2024 text/html Pt is here for f /u on his labs, fatigue and low energy. Overall feeling same as before. Denies any new concern. Pt is f/u with Psychiatrist at [facility] for his depression and PTSD and is on meds by them. Pt has chronic b/l knee pain and he has seen Ortho for it. Pt has chronic b/l tinnitus and is f/u with ENT for it. Pt has ISABEL and he has C-pap. Mark Almeida MD [address] [facility], [facility] [address], [place], [address], [employer] [facility] [employer] 04/26/2024 11:15:09 05/14/2024 text/html ACV: C/o abdominal bloating for last many years and he wants to see GI for further work up of it. Denies any blood in stool. C/o rash over his Rt upper eyelid that started today morning. Pt says he gets this few times per year and it lasts for about a week at a time. No vision changes/no sticking of eyelids. Mark Almeida MD [address], [facility] [address], [place], [address], [place] [facility] [employer] 05/14/2024 15:59:26 05/28/2024 text/html Primary care/Ref erring provider: Carroll Almeida MD; Moy Stauffer MD CC: I had septoplasty/turbinopla sty and I want to know if my CPAP needs adjustment. During the [facility] home sleep study on 04/02/23 AHI = 6, supine AHI = 7. At home since 07/21/23, the patient uses a ResMed AirSense 11 autoset unit with heated humidification. The patient does not need the ramp to start low and go up slowly on the pressure. There is no xerostomia in a.m. There is no hose/mask condensation with water. The patient wears a ResMed AirFit N30i nasal mask without chin strap. There is no claustrophobia, no nostril/nose bridge irritation, no facial rash, no facial numbness, no nosebleeding. The patient feels more refreshed upon waking and daytime alertness is improved. Energy levels are sustained until noon. At home, the patient sleeps from 10 pm to 5 am and wakes up without an alarm. Snoring: heavy, since .Snorting: yesChoking: noCoughing: noGasping: yesGagging: noSighing: yesWitnessed apnea: yesTwitching or jerking of leg(s), arm(s), body, head: yesTeeth grinding: noTeeth clenching: noSleeptalking: yesSleepwalking: noSleep crying: noBedwetting: noTongue/lip/gum/cheek biting: noSleeping with open mouth: yesSleep paralysis: noHypnagogic hallucinations: noHypnopompic hallucinations: noVivid dreams: noDifficulty with sleep onset: yesDifficulty with sleep maintenance: yesSleep interruptions: for no known reasonsPatient wakes up with: fatigue, xerostomia, disorientation, cognitive impairment, mobility impairment, dexterity impairmentDaytime cataplexy: noMorning hypersomnolence: yesAfternoon hypersomnolence: yesCaffeine sources in diet: coffee 4.5 cups per day, tea 1 cup per week, soda 1 can per week, chocolate 1 handful coffee beans per season Associated medical and psychiatric conditions:Congestive heart failure: noCoronary artery disease: noMyocardial infarction: noHypertension: noStroke: noBronchial asthma: noChronic obstructive pulmonary disease: noDepression: noBipolar disorder: noAnxiety: noPanic disorder: noPosttraumatic stress disorder: noAttention deficit and hyperactivity disorder: noObsessive Compulsive disorder: noSchizophrenia: noSchizoaffective disorder: noPersonality disorder: noChronic analgesic use: noChronic sedative/hypnotic use: no EPWORTH SLEEPINESS SCALE (ESS) CHANCE OF DOZING SCORE0 = would never doze1 = slight chance of dozing2 = moderate chance of dozing3 = high chance of dozing SITUATION AND CHANCE OF DOZINGSitting and reading - 3Watching television - 2Sitting inactive in a public place (e.g. a theater or meeting) - 2As a passenger in a car for an hour without a break - 3Lying down to rest in the afternoon when circumstances permit - 3Sitting and talking to someone - 2Sitting quietly after lunch without alcohol - 1In a car, while stopped for a few minutes in the traffic -2TOTAL SCORE 18Subjectively, patient has a high chance of dozing. Boston Morin MD [address], [address], [facility] [employer] 05/28/2024 15:01:51
[2024-08-30 09:35] VITALS: BP 124/59; PULSE 65; RESP 16; TEMP 36.4; O2SAT 100; BMI 29.5
[2024-08-30] MEDS: LACTATED RINGERS 1,000 ML 150 ML IV CONT (09:45)
--- NOTE | 2024-08-30 10:16 | WPDANESEPPF ---
Anes - Initial Pre Proc Eval Procedure: Operation Date: 08/30/24 10:45 Proposed Procedures p Esophagogastroduodenoscopy & Colonoscopy - Ramy Otrez MD Date/Time: 08/30/24 10:16 Surgeon: Ramy Ortez MD Pre Op Diagnosis: Abdominal distension (gaseous) Patient Data Age: 48 Gender: M Height: 1.68 m Weight: 82.8 kg Last Vital Signs Temp 97.6 F 08/30/24 09:35 Pulse 65 08/30/24 09:35 Resp 16 08/30/24 09:35 BP 124/59 L 08/30/24 09:35 Pulse Ox 100 08/30/24 09:35 O2 Del Method Room Air 08/30/24 09:35 Allergies Allergy/AdvReac Type Severity Reaction Status Date / Time No Known Allergies Allergy Verified 08/30/24 09:34 Home Medications ?Medication ?Instructions ?Recorded ?Confirmed ?Type dolutegravir 50 mg tablet 50 mg PO DAILY #28 tabs 11/30/21 08/15/24 Rx emtricitabine 200 mg-tenofovir 1 tablet PO DAILY #28 tabs 11/30/21 08/15/24 Rx disoproxil fumarate 300 mg tablet cariprazine 1.5 mg capsule 1.5 mg PO Q24H 08/15/24 08/30/24 History (Vraylar) venlafaxine 75 mg capsule,extended 75 mg PO QPM 08/15/24 08/30/24 History release 24 hr Patient hx anesthesia problems: none Family hx anesthesia problems: none Results Review: All pre-operative results and documents have been reviewed as part of the pre-operative evaluation. [facility] Social History Social History Smoking status: Never smoker Alcohol intake: never Living arrangements: alone Spiritual care concerns: No Anes - Eval Final PreProcedure Day of Procedure 08/30/24 10:16 Patient weight: overweight Lungs: normal air movement Airway: Mallampati scale class II Neurological: alert and oriented Last oral intake: >/= 8 hours ASA classification: II Emergent: no Anesthetic plan: proceed Anesthesia type and monitoring: general GIVS and standard monitoring Results Review: All pre-operative results and documents have been reviewed as part of the pre-operative evaluation. ISABEL, noncompliant w CPAP. Informed Consent: The patient's anesthetic plan and its attendant risks and benefits were discussed with the patient/family/POA. Questions were solicited and answers provided to the satisfaction of the patient/family/POA.
--- NOTE | 2024-08-30 10:20 | PM.IMHP ---
H&P: HPI History of Present Illness Date/Time: 08/30/24 10:20 Chief Complaint: Screening colonoscopy-dyspepsia Narrative: patient referred for colonoscopy for screening purposes and EGD for occasional dyspepsia. he denies nausea, vomiting, weight loss, hematemesis, dysphagia or heartburn. Review of Systems Review of Systems: All systems reviewed & are unremarkable except as noted in HPI and below PMFSH Social History Social History Smoking status: Never smoker Alcohol intake: never Living arrangements: alone Spiritual care concerns: No Meds Home Medications and Allergies Home Medications ?Medication ?Instructions ?Recorded ?Confirmed ?Type dolutegravir 50 mg tablet 50 mg PO DAILY #28 tabs 11/30/21 08/15/24 Rx emtricitabine 200 mg-tenofovir 1 tablet PO DAILY #28 tabs 11/30/21 08/15/24 Rx disoproxil fumarate 300 mg tablet cariprazine 1.5 mg capsule 1.5 mg PO Q24H 08/15/24 08/30/24 History (Vraylar) venlafaxine 75 mg capsule,extended 75 mg PO QPM 08/15/24 08/30/24 History release 24 hr Allergies Allergy/AdvReac Type Severity Reaction Status Date / Time No Known Allergies Allergy Verified 08/30/24 09:34 Vital Signs Vital Signs - 24 hr 08/30/24 09:35 Temperature 97.6 F Pulse Rate 65 Respiratory Rate 16 Blood Pressure 124/59 L Pulse Oximetry 100 Oxygen Delivery Room Air Exam Const: General: cooperative and healthy appearing Resp: Effort & Inspection: normal respiratory effort and able to speak in complete sentences Auscultation: clear to auscultation bilaterally Cardio: Rate: regular rate Rhythm: regular rhythm GI: Inspection: normal to inspection GI Palp: No No hepatosplenomegaly present Auscultation: normal bowel sounds Rectal Exam: deferred Skin: General skin exam: normal color Psych: Appearance: grossly normal Mental Status: mental status grossly normal Assessment and Plan Assessment and plan (1) Encounter for screening colonoscopy: Code(s): Z12.11 - Encounter for screening for malignant neoplasm of colon Status: Acute Assessment and Plan: The patient is deemed a good candidate for the procedures. Consent signed. Will proceed.
--- NOTE | 2024-08-30 10:41 | S_PTH ---
PATIENT: Marcelino Neal III LOC: [facility] Pierce#:[id number] AGE/SX: 48/M ROOM: RE08/30/[address]: Ramy Ortez MD : 1975 BED: DIS: 08/30/2024 SPEC #: [id number] RECD: 08/30/24 11:45 STATUS: DAVE REQ #: [id number] JASBIR: 08/30/24 10:[address]: Ramy Ortez DEPT: [facility] Surgical RECD BY: Winter Pak ENTERED: 08/30/24 11:45 SP TYPE: Surgical OTHR DR: Mark AlmeidaMD Tissues: A - Gastric Biopsy B - Gastric Biopsy C - Colon Polypectomy Procedures: Hematoxylin and Eosin Stain Gross and Microscopic Level 4
--- NOTE | 2024-08-30 10:44 | SUR.OPER ---
EGD: [id number] COLON: Start 1047
[2024-08-30 11:02] VITALS: BP 104/35; PULSE 54; RESP 14; O2SAT 100
[2024-08-30 11:12] VITALS: BP 108/43; PULSE 61; RESP 15; O2SAT 100
[2024-08-30 11:22] VITALS: BP 114/52; PULSE 62; RESP 20; O2SAT 100
== END 2024-08-30 11:31 | disposition home or self-care (01) ==
PROVIDERS: PCP Family Medicine; Referring Provider Family Medicine; Visit Provider Internal Medicine Gastroenterology
PROC: 0DJ08ZZ Inspection of Upper Intestinal Tract, Via Natural or Artificial Opening Endoscopic (ICD-10-PCS; CPT 45378; principal; 2024-08-30 10:45)
DX: Z12.11 Encounter for screening for malignant neoplasm of colon (principal); K63.5 Polyp of colon; K29.30 Chronic superficial gastritis without bleeding; G47.33 Obstructive sleep apnea (adult) (pediatric)
CPT/HCPCS: 43239; 45385; 88305; J2003; J2704; J7120